=== PATIENT | female | born 1960 | race Caucasian/White ===

== ENCOUNTER 2017-05-21 16:38 | Emergency (ER) | payer BC, OTHER ==
[2017-05-21 16:55] VITALS: TEMP 98.4; BMI 37.3
--- NOTE | 2017-05-21 17:35 | PDOC ---
History of Present Illness - General History Source: Patient, Family (Son and Daughter ) Exam Limitations: No Limitations - History of Present Illness Initial Comments: The patient is a 56 year old female with past medical history of stage 2 Breast Cancer, Lumpectomy, Anxiety, Depression, and Lap Band Procedure (2002) is brought to the ED accompanied by her son and daughter [facility]. The patient reports she was leaning forward on a massage chair while getting a rough but good massage on her posterior neck and head when she felt clammy and asked her masseuse to stop. The patient reports she tried to focus on a red plaque near the floor but was unable to, followed by sweating, and tunnel vision. The patient states she doesn't remember what happened after and a nurse present at the scene reports she lost conscious. The patient reports after she regained conscious somebody gave her a piece of candy then the son drove her to the ED. The patient reports frequent feeling of dizziness (3-4X a week), after a hot shower, not eating or drinking enough, or during stressful situations. The patients daughter reports she faints at least 1X a week. The Nurse (a customer at the [facility]) present at the scene reports she had thready pulse while unconscious. The patient reports feeling nauseous but she reports its due to not eating anything. The patient denies hitting her head when she fainted, chest pain, any sensation of dizziness,or lightheadedness right now. The patient denies any history of smoking, use of alcohol or any recreational drugs. 05/21/17 18:45 <Antonia Liz - Last Filed: 05/21/17 18:52> <Madison Nicolas - Last Filed: 05/21/17 19:12> - General Chief Complaint: Syncope/Near Syncope Stated Complaint: SYNCOPAL EPISODE Time Seen by Provider: 05/21/17 16:43 Past History <Antonia Liz - Last Filed: 05/21/17 18:52> - Past Medical History Anemia: No Asthma: No Cancer: Yes (RIGHT BREAST CA) Cardiac Disorders: No CVA: No COPD: No CHF: No Dementia: No Diabetes: No GI Disorders: No Disorders: No HTN: No Hypercholesterolemia: No Liver Disease: No Psychiatric Problems: (DEPRESSION, ANXIETY) Seizures: No Thyroid Disease: No - Surgical History Abdominal Surgery: Yes (GASTRIC BAND-2002) Appendectomy: No Cardiac Surgery: No Cholecystectomy: No Lung Surgery: No Neurologic Surgery: No Orthopedic Surgery: Yes (LEFT SHOULDER SURGERY) - Immunization History Immunization Up to Date: Yes - Suicide/Smoking/Psychosocial Hx Smoking Status: No Smoking History: Never smoked Have you smoked in the past 12 months: No Number of Cigarettes Smoked Daily: 0 Information on smoking cessation initiated: No Hx Alcohol Use: No Drug/Substance Use Hx: No Substance Use Type: None Hx Substance Use Treatment: No <Madison Nicolas S - Last Filed: 05/21/17 19:12> - Past Medical History Allergies/Adverse Reactions: Allergies Allergy/AdvReac Type Severity Reaction Status Date / Time exemestane AdvReac Intermediate joint Unverified 08/14/16 15:26 swelling Home Medications: Ambulatory Orders Azithromycin [Zithromax 250mg Tablets -] 1 tab PO DAILY 05/21/17 Review of Systems - Review of Systems Able to Perform ROS?: Yes Comments:: CONSTITUTIONAL: (+) Diaphoresis and felt clammy before fainting. Absent: fever, chills, generalized weakness, malaise, loss of appetite HEENT: (+) Tunnel vision before fainting. Absent: rhinorrhea, nasal congestion, throat pain, throat swelling, difficulty swallowing, mouth swelling, ear pain, eye pain, visual Changes CARDIOVASCULAR: (+) Syncope Absent: palpitations, irregular heart rate, lightheadedness, peripheral edema RESPIRATORY: Absent: cough, shortness of breath, dyspnea with exertion, orthopnea, wheezing, stridor, hemoptysis GASTROINTESTINAL: Absent: abdominal pain, abdominal distension, nausea, vomiting, diarrhea, constipation, melena, hematochezia GENITOURINARY: Absent: dysuria, frequency, urgency, hesitancy, hematuria, flank pain, genital pain MUSCULOSKELETAL: Absent: myalgia, arthralgia, joint swelling SKIN: Absent: rash, itching, pallor HEMATOLOGIC/IMMUNOLOGIC: Absent: easy bleeding, easy bruising, lymphadenopathy, frequent infections ENDOCRINE: Absent: unexplained weight gain, unexplained weight loss, heat intolerance, cold intolerance NEUROLOGIC: (+) frequent dizziness and occasional episodes of fainting. Absent: headache, focal weakness or paresthesias, seizure, mental status changes , bladder or bowel incontinence 05/21/17 18:52 <Antonia Liz - Last Filed: 05/21/17 18:52> *Physical Exam - Vital Signs Last Vital Signs Temp Pulse Resp BP Pulse Ox 98.4 F 68 20 119/46 100 05/21/17 16:45 05/21/17 16:45 05/21/17 16:45 05/21/17 16:45 05/21/17 16:45 - Physical Exam Comments: GENERAL: Well developed, well nourished. Awake and alert. No acute distress. HEENT: Normocephalic, atraumatic. PERRLA, EOMI. No conjunctival pallor. Sclera are non- icteric. Moist mucous membranes. Oropharynx is clear. NECK: Supple. Full ROM. No JVD. Carotid pulses 2+ and symmetric, without bruits. No thyromegaly. No lymphadenopathy. CARDIOVASCULAR: Regular rate and rhythm. No murmurs, rubs, or gallops. Distal pulses are 2+ and symmetric. PULMONARY: No evidence of respiratory distress. Lungs clear to auscultation bilaterally. No wheezing, rales or rhonchi. ABDOMINAL: (+) Obese. Soft. Non-tender. Non-distended. No rebound or guarding. No organomegaly. Normoactive bowel sounds. MUSCULOSKELETAL Normal range of motion at all joints. No bony deformities or tenderness. No CVA tenderness. EXTREMITIES: No cyanosis. No clubbing. No edema. No calf tenderness. SKIN: Warm and dry. Normal capillary refill. No rashes. No jaundice. NEUROLOGICAL: (+) Episodes of fainting. Alert, awake, appropriate. Cranial nerves 2-12 intact. No deficits to light touch and temperature in face, upper extremities and lower extremities. No motor deficits in the in face, upper extremities and lower extremities. Normoreflexic in the upper and lower extremities. Normal speech. Toes are down- going bilaterally. PSYCHIATRIC: Cooperative. Good eye contact. Appropriate mood and affect. 05/21/17 18:46 <Antonia Liz - Last Filed: 05/21/17 18:52> - Vital Signs Last Vital Signs Temp Pulse Resp BP Pulse Ox 98.4 F 68 20 119/46 100 05/21/17 16:45 05/21/17 16:45 05/21/17 16:45 05/21/17 16:45 05/21/17 16:45 <Madison Nicolas - Last Filed: 05/21/17 19:12> ED Treatment Course - LABORATORY CBC & Chemistry Diagram: 05/21/17 17:51 05/21/17 17:51 <Antonia Liz - Last Filed: 05/21/17 18:52> - LABORATORY CBC & Chemistry Diagram: 05/21/17 17:51 05/21/17 17:51 <Madison Nicolas - Last Filed: 05/21/17 19:12> *DC/Admit/Observation/Transfer - Attestations Scribe Attestion: 05/21/17 18:52 Documentation prepared by Antonia Liz, acting as medical doctor nuclear medicine for Madison Nicolas MD. <Antonia Liz - Last Filed: 05/21/17 18:52> - Discharge Dispostion Admit: No <Madison Nicolas - Last Filed: 05/21/17 19:12> Diagnosis at time of Disposition: Vaso vagal episode - Discharge Dispostion Disposition: HOME Condition at time of disposition: Stable - Referrals Referrals: Paulie Espitia MD [Staff Physician] - - Patient Instructions Printed Discharge Instructions: DI for Syncope in Adults (Fainting) Additional Instructions: Call Dr Espitia office 9 am to be seen by the doctor tomorrow or Friday. return if any symptoms. Fluids, frequent small feedings
[2017-05-21 18:39] LABS: BASO % 0.3 % (0-2.0); EOS % 2.6 % (0-4.5); HEMATOCRIT 41.4 % (32.4-45.2); HEMOGLOBIN 13.9 GM/dl (10.7-15.3); LYMPH % 22.6 % (8-40); MCH 28.6 pg (25.7-33.7); MCHC 33.6 g/dl (32.0-36.0); MEAN CELL VOLUME 85.2 fl (80-96); MEAN PLT VOLUME 8.2 fl (7.5-11.1); NEUT % 68.5 % (42.8-82.8); PLATELET COUNT 311 K/MM3 (134-434); RBC 4.86 M/mm3 (3.60-5.2); WHITE BLOOD COUNT 8.6 K/mm3 (4.0-10.8)
[2017-05-21 18:53] LABS: ALK PHOS 94 U/L (32-92); ANION GAP 8 (8-16); BILIRUBIN,TOTAL 0.7 mg/dl (0.2-1.0); BLOOD UREA NITROGEN 18 mg/dl (7-18); CALCIUM 9.3 mg/dl (8.4-10.2); CHLORIDE 100 mmol/L (98-107); CO2 25 mmol/L (22-28); GLUCOSE,RANDOM 125 mg/dl (74-106); POTASSIUM 3.7 mmol/L (3.5-5.1); SGOT/AST 18 U/L (10-42); SGPT/ALT 16 U/L (10-40); SODIUM 133 mmol/L (136-145); TOT PROT 6.9 g/dl (6.4-8.3)
[2017-05-21 19:04] LABS: CREATININE < 0.8 mg/dl (0.6-1.3)
[2017-05-21 19:31] VITALS: BP 121/78; PULSE 72
--- NOTE | 2017-05-22 15:57 | EKG ---
Test Reason : Blood Pressure : / mmHG Vent. Rate : 063 BPM Atrial Rate : 063 BPM P-R Int : 150 ms QRS Dur : 088 ms QT Int : 428 ms P-R-T Axes : 003 009 011 degrees QTc Int : 437 ms POOR DATA QUALITY, INTERPRETATION MAY BE ADVERSELY AFFECTED NORMAL SINUS RHYTHM NORMAL ECG NO PREVIOUS ECGS AVAILABLE Confirmed by RUFUS RAGSDALE MD ([id number]) on 05/22/2017 3:56:58 PM Referred By: MD THAYER Confirmed By:RUFUS RAGSDALE MD
== END 2017-05-21 19:42 | disposition home or self-care (01) ==
LOC: FER 16:38
DX: R05 Cough (principal); R55 Syncope and collapse; Z98.84 Bariatric surgery status; F41.8 Other specified anxiety disorders; Z85.3 Personal history of malignant neoplasm of breast
CPT/HCPCS: 36415; 71046-TC-FY; 80053; 84484; 85025; 93005; 99284-25

== ENCOUNTER 2018-04-04 16:22 | Inpatient (IN) | payer OTHER ==
[2018-04-04] MEDS ORDERED: METOCLOPRAMIDE HCL INJECTION 10 MG/2 ML VIAL IVPUSH ONE (16:33)
[2018-04-04] MEDS ORDERED: SODIUM CHLORIDE 1,000 ML IV STA (16:33)
[2018-04-04] MEDS ORDERED: ACETAMINOPHEN 1000 MG/100 ML VIAL (NON FORMULARY) IVPB ONE (16:42)
[2018-04-04] MEDS ORDERED: PANTOPRAZOLE SODIUM 40 MG VIAL IVPUSH ONE (16:58)
[2018-04-04] MEDS ORDERED: OCTREOTIDE ACETATE 50 MCG/1 ML - 1 ML VIAL IVPUSH ONE (17:00)
[2018-04-04] MEDS ORDERED: PANTOPRAZOLE SODIUM 40 MG/100 ML BAG IVPB ONE (17:06)
[2018-04-04] MEDS ORDERED: METOCLOPRAMIDE HCL INJECTION 10 MG/2 ML VIAL ONE (17:06)
[2018-04-04 17:11] LABS: BASO % 0.3 % (0-2.0); EOS % 1.6 % (0-4.5); HEMATOCRIT 43.9 % (32.4-45.2); HEMOGLOBIN 14.9 GM/dL (10.7-15.3); LYMPH % 8.9 % (8-40); MCH 29.5 pg (25.7-33.7); MCHC 33.9 g/dl (32.0-36.0); MEAN CELL VOLUME 87.2 fl (80-96); MEAN PLT VOLUME 8.2 fl (7.5-11.1); MONO % 4.6 % (3.8-10.2); NEUT % 84.6 % (42.8-82.8); PLATELET COUNT 354 K/MM3 (134-434); RBC 5.03 M/mm3 (3.60-5.2); RDW 14.6 % (11.6-15.6); WHITE BLOOD COUNT 17.1 K/mm3 (4.0-10.0)
[2018-04-04] MEDS ORDERED: ACETAMINOPHEN INJECTION 100 ML IVPB ONE (17:26)
--- NOTE | 2018-04-04 17:28 | PDOC ---
Attending Attestation - Resident Resident Name: Jersey León - ED Attending Attestation I have performed the following: I have examined & evaluated the patient, The case was reviewed & discussed with the resident, I agree w/resident's findings & plan, Exceptions are as noted - HPI HPI: 04/04/18 17:25 The patient is a 57 year old female, with a significant past medical history of Stage 2 Breast Cancer (s/p Lumpectomy), Anxiety, Depression, and Lap Band Procedure (2002), who presents to the emergency department with, abdominal pain , nausea, vomiting, and diarrhea. Patient describes her pain as epigastric and RUQ. Prior to her arrival patient experienced 2 episodes of syncope in the context of vomting. As per EMS, patient was given Zofran prior to her arrival. She denies recent fevers, chills, headache or dizziness. She denies recent dysuria, frequency, urgency or hematuria. She denies recent chest pain or shortness of breath. In ED, pt was witnessed to have coffee grounds emesis as well as melenotic stool. Pt denies h/o GI bleed. Denies blood thinners or NSAIDs. Denies any h/o ETOH abuse. Allergies: Exemestane Past surgical history: None reported. Social history: Nonsmoker. Denies EtOH use and recreational drug use. Primary Care Physician: Dr. Espitia - Physicial Exam PE: 04/04/18 17:26 GENERAL: Awake, alert, and fully oriented, in no acute distress. HEAD: No signs of trauma EYES: PERRLA, EOMI, sclera anicteric, conjunctiva clear ENT: Auricles normal inspection, hearing grossly normal, nares patent, oropharynx clear without exudates. Moist mucosa NECK: Nontender, no stepoffs, Normal ROM, supple, no lymphadenopathy, JVD, or masses LUNGS: Breath sounds equal, clear to auscultation bilaterally. No wheezes, and no crackles HEART: Regular rate and rhythm, normal S1 and S2, no murmurs, rubs or gallops ABDOMEN: + epigastric and RUQ tenderness, normoactive bowel sounds. No guarding , no rebound. No masses EXTREMITIES: Normal range of motion, no edema. No clubbing or cyanosis. No cords, erythema, or tenderness NEUROLOGICAL: Cranial nerves II through XII intact. 5/5 strength and sensation in all extremities, Normal speech, normal gait, normal cerebellar function SKIN: Warm, Dry, normal turgor, no rashes or lesions noted. - Medical Decision Making 04/04/18 17:27 57 F with abdominal pain, N+V+D. In ED noted to have coffee grounds emesis and melena. Suspicious for UGIB. Exam also with epigastric and RUQ tenderness. - Labs - RUQ sono - IVF, zofran - Protonix drip - Octreotide - GI consult 04/04/18 17:[address] Greene consulted Will admit to ICU <Navneet Cuellar - Last Filed: 04/04/18 17:42> - Medical Decision Making 04/04/18 17:36 Call placed to [facility], surgery application services manager. Made aware Dr. Augustine is application services manager, EM resident Dr. Trevor León discussed case with patient. 19:[address] Greene's answering service, awaiting call back. <Dhruv Pedroza - Last Filed: 04/04/18 19:06> Attestations - Attestations 04/04/18 17:39 Documentation prepared by Dhruv Pedroza, acting as manager of medical for Navneet Cuellar MD. <Dhruv Pedroza - Last Filed: 04/04/18 19:06>
[2018-04-04] MEDS: PANTOPRAZOLE SODIUM 80 MG in SODIUM CHLORIDE 100 ML IVPB SCH (17:40)
[2018-04-04 17:42] LABS: INR 1.01 (0.83-1.09); PROTHROMBIN TIME (PATIENT) 11.9 SEC (9.7-13.0)
--- NOTE | 2018-04-04 17:42 | PDOC ---
History of Present Illness - General Chief Complaint: Syncope/Near Syncope Stated Complaint: Syncope/Near Syncope Time Seen by Provider: 04/04/18 16:32 History Source: Patient, Family Exam Limitations: No Limitations - History of Present Illness Initial Comments: 04/04/18 17:33 Patient is a 57F with history of HTN and R sided lumpectomy with lymph node dissection on right side here today complaining of vomiting, diarrhea and syncope that onset acutely this afternoon. Patient reports multiple episodes of brown vomit. Patient defecated self. Episode of diarrhea and vomiting seen at bedside: patient has melena and coffee ground emesis. Patient's family reports two episodes of syncope. Patient says she feels cold and diaphoretic. Patient states that she has had intermittent epigastric abdominal pain for the past month. Past History - Past Medical History Allergies/Adverse Reactions: Allergies Allergy/AdvReac Type Severity Reaction Status Date / Time exemestane AdvReac Intermediate joint Unverified 08/14/16 15:26 swelling Home Medications: Ambulatory Orders Azithromycin [Zithromax 250mg Tablets -] 1 tab PO DAILY 05/21/17 Anemia: No Asthma: No Cancer: Yes (RIGHT BREAST CA) Cardiac Disorders: No CVA: No COPD: No CHF: No Dementia: No Diabetes: No GI Disorders: No Disorders: No HTN: No Hypercholesterolemia: No Liver Disease: No Psychiatric Problems: (DEPRESSION, ANXIETY) Seizures: No Thyroid Disease: No - Surgical History Abdominal Surgery: Yes (GASTRIC BAND-2002) Appendectomy: No Cardiac Surgery: No Cholecystectomy: No Lung Surgery: No Neurologic Surgery: No Orthopedic Surgery: Yes (LEFT SHOULDER SURGERY) - Immunization History Immunization Up to Date: Yes - Suicide/Smoking/Psychosocial Hx Smoking Status: No Smoking History: Never smoked Have you smoked in the past 12 months: No Number of Cigarettes Smoked Daily: 0 Information on smoking cessation initiated: No Hx Alcohol Use: No Drug/Substance Use Hx: No Substance Use Type: None Hx Substance Use Treatment: No Review of Systems - Review of Systems Comments:: 04/04/18 17:52 GENERAL/CONSTITUTIONAL: No fever or chills. No weakness. HEAD, EYES, EARS, NOSE AND THROAT: No change in vision. No sore throat. CARDIOVASCULAR: No chest pain or shortness of breath RESPIRATORY: No cough, wheezing, or hemoptysis. GASTROINTESTINAL: +nausea, +vomiting, +diarrhea no constipation. GENITOURINARY: No dysuria, frequency, or change in urination. MUSCULOSKELETAL: No joint or muscle swelling or pain. No neck or back pain. SKIN: No rash NEUROLOGIC: No headache, vertigo, loss of consciousness, or change in strength/ sensation. ENDOCRINE: No increased thirst. No abnormal weight change HEMATOLOGIC/LYMPHATIC: No anemia, easy bleeding, or history of blood clots. ALLERGIC/IMMUNOLOGIC: No hives or skin allergy. *Physical Exam - Vital Signs Last Vital Signs Temp Pulse Resp BP Pulse Ox 97.3 F L 84 18 91/59 L 96 04/04/18 16:41 04/04/18 16:41 04/04/18 16:41 04/04/18 16:41 04/04/18 16:41 - Physical Exam Comments: 04/04/18 17:55 GENERAL: Awake, alert, and fully oriented, pale, diaphoretic HEAD: No signs of trauma, normocephalic, atraumatic EYES: PERRLA, EOMI, sclera anicteric, conjunctiva clear ENT: Auricles normal inspection, hearing grossly normal, nares patent, oropharynx clear without exudates. Moist mucosa NECK: Normal ROM, supple, no lymphadenopathy, JVD, or masses LUNGS: No distress, speaks full sentences, clear to auscultation bilaterally HEART: Regular rate and rhythm, normal S1 and S2, no murmurs, rubs or gallops, peripheral pulses normal and equal bilaterally. ABDOMEN: Soft +epigastric tenderness. No guarding, no rebound. No masses EXTREMITIES: Normal inspection, Normal range of motion, no edema. No clubbing or cyanosis. NEUROLOGICAL: Cranial nerves II through XII grossly intact. Normal speech, no focal sensorimotor deficits SKIN: Warm, Dry, normal turgor, no rashes or lesions noted. Moderate Sedation - Procedure Monitoring Vital Signs: Procedure Monitoring Vital Signs Temperature 97.3 F L 04/04/18 16:41 Pulse Rate 84 04/04/18 16:41 Respiratory Rate 18 04/04/18 16:41 Blood Pressure 91/59 L 04/04/18 16:41 O2 Sat by Pulse Oximetry (%) 96 04/04/18 16:41 ED Treatment Course - LABORATORY CBC & Chemistry Diagram: 04/04/18 18:17 04/04/18 16:55 - ADDITIONAL ORDERS Additional order review: 04/04/18 16:55 RBC 5.03 MCV 87.2 MCHC 33.9 RDW 14.6 MPV 8.2 Neutrophils % 84.6 H D Lymphocytes % 8.9 D Monocytes % 4.6 Eosinophils % 1.6 Basophils % 0.3 - RADIOLOGY Radiology Studies Ordered: Category Date Time Status CXRPORT [CHEST X-RAY PORTABLE*] [RAD] Stat Radiology 04/04/18 17:16 Ordered - Medications Given in the ED: ED Medications Discontinued Medications Generic Name Dose Route Start Last Admin Trade Name Alanis PRN Reason Stop Dose Admin Sodium Chloride 1,000 mls @ 1,000 mls/hr 04/04/18 16:33 04/04/18 17:00 Normal Saline - IV 04/04/18 17:32 1,000 mls/hr ASDIR STA Administration Metoclopramide HCl 10 mg 04/04/18 16:33 04/04/18 17:00 Reglan Injection - IVPUSH 04/04/18 16:34 10 mg ONCE ONE Administration Pantoprazole Sodium 40 mg 04/04/18 16:58 04/04/18 17:00 Protonix Iv IVPUSH 04/04/18 16:59 40 mg ONCE ONE Administration Medical Decision Making - Medical Decision Making 04/04/18 17:55 Patient is 57F here today with GI bleed. Vitals notable for hypotension 90/60, story concerning given two episodes of syncope. Melena/coffee ground emesis witness. Patient given fluids, protonix, octreotide, protonix drip. Dr Greene paged. Initial CBC 14.9. CXR shows no free air under diaphragm. Dr Augustine consulted per Dr Greene. Patient is responsive to fluid, still feels weak. Last BP 120/70. Case discussed with Toan Oconnor, will evaluate for ICU. Dr Greene requesting ICU, second CBC at 18:30 04/04/18 19:08 Second cbc 14.1, case d/w Toan Oconnor, believe patient is stable for floor. Dr Greene aware. Will admit to tele. *DC/Admit/Observation/Transfer Diagnosis at time of Disposition: GI bleed - Discharge Dispostion Condition at time of disposition: Stable Decision to Admit order: Yes - Referrals Referrals: Paulie Espitia MD [Primary Care Provider] - - Patient Instructions - Post Discharge Activity
--- NOTE | 2018-04-04 17:50 | CON.GI ---
Consult Consult Specialty:: Gastroenterology Referred by:: Dr Jersey León Reason for Consultation:: Hematemesis and melena - History of Present Illness Chief Complaint: abdominal pain culminating in coffee grd emesism melena and syncope History of Present Illness: 57F developed coffee ground hematemesis, melena and suffered a syncopal spell on the toilet today. She has had epigastric pain and nausea or the past month for which she was taking Zofran regularly but Zantac prn only. She has chronic acid reflux. She has been using Motrin 800mg for migraine headaches. She had a lap band removed several years ago. She has never had an EGD or a colonoscopy although her brother had colon cancer and she is a breast cancer survivor. 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 Chemorx at [facility]) Psych: Yes: Anxiety, Depression - Past Surgical History Past Surgical History: Yes: Bariatric Surgery, (x 2) Additional Surgical History: Right lumpectomy for breast cancer 2016. Lap band removed 2014 - Alcohol/Substance Use Hx Alcohol Use: No - Smoking History Smoking history: Never smoked Have you smoked in the past 12 months: No Aproximately how many cigarettes per day: 0 - Social History Usual Living Arrangement: With Spouse ADL: Independent Place of : [facility] History of Recent Travel: No Home Medications - Allergies Allergies/Adverse Reactions: Allergies Allergy/AdvReac Type Severity Reaction Status Date / Time exemestane AdvReac Intermediate joint Unverified 08/14/16 15:26 swelling - Home Medications Home Medications: Ambulatory Orders Azithromycin [Zithromax 250mg Tablets -] 1 tab PO DAILY 05/21/17 Family Disease History - Family Disease History Family Disease History: CA: Mother (breast ca 60), Brother (colon cancer in his 60s) Other Family History: Maternal aunt had breast cancer Review of Systems - Review of Systems Constitutional: reports: Chills, Lethargy, Other (Lightheadedness) Eyes: reports: No Symptoms HENT: reports: No Symptoms Neck: reports: No Symptoms Cardiovascular: reports: Palpitations, Shortness of Breath, Other (syncopal spell today) Gastrointestinal: reports: Abdominal Pain, Melena, Nausea, Vomiting, Vomiting Blood Neurological: reports: Headache Endocrine: reports: Increased Thirst Psychiatric: reports: Anxiety Physical Exam-GI Vital Signs: Vital Signs Temperature 97.3 F L 04/04/18 16:41 Pulse Rate 84 04/04/18 16:41 Respiratory Rate 18 04/04/18 16:41 Blood Pressure 91/59 L 04/04/18 16:41 O2 Sat by Pulse Oximetry (%) 96 04/04/18 16:41 CBC,CMP WBC 17.1 K/mm3 (4.0-10.0) H 04/04/18 16:55 RBC 5.03 M/mm3 (3.60-5.2) 04/04/18 16:55 Hgb 14.9 GM/dL (10.7-15.3) 04/04/18 16:55 Hct 43.9 % (32.4-45.2) D 04/04/18 16:55 MCV 87.2 fl (80-96) 04/04/18 16:55 MCH 29.5 pg (25.7-33.7) D 04/04/18 16:55 MCHC 33.9 g/dl (32.0-36.0) 04/04/18 16:55 RDW 14.6 % (11.6-15.6) 04/04/18 16:55 Plt Count 354 K/MM3 (134-434) D 04/04/18 16:55 MPV 8.2 fl (7.5-11.1) 04/04/18 16:55 Absolute Neuts (auto) 14.5 K/mm3 (1.5-8.0) H 04/04/18 16:55 Neutrophils % 84.6 % (42.8-82.8) H D 04/04/18 16:55 Lymphocytes % 8.9 % (8-40) D 04/04/18 16:55 Monocytes % 4.6 % (3.8-10.2) 04/04/18 16:55 Eosinophils % 1.6 % (0-4.5) 04/04/18 16:55 Basophils % 0.3 % (0-2.0) 04/04/18 16:55 Nucleated RBC % 0 % (0-0) 04/04/18 16:55 Creatine Kinase 56 U/L (26-192) 04/04/18 16:55 Troponin I < 0.02 ng/ml (0.00-0.05) 04/04/18 16:55 Current Medications Generic Name Dose Route Start Last Admin Trade Name Alanis PRN Reason Stop Dose Admin Pantoprazole Sodium 80 mg/ 100 mls @ 10 mls/hr 04/04/18 17:00 Sodium Chloride IVPB Q10H CORA 8 MG/HR Constitutional: Yes: Anxious Eyes: Yes: Conjunctiva Clear HENT: Yes: Atraumatic Neck: Yes: Supple Cardiovascular: Yes: Regular Rate and Rhythm, Tachycardia Respiratory: Yes: CTA Bilaterally Gastrointestinal Inspection: Yes: Scars (healed Pfannensteil and laparoscopic incisions) ...Auscultate: Yes: Normoactive Bowel Sounds ...Palpate: Yes: Soft, Tenderness (mild epigastric tenderness) ...Rectal Exam: Yes: Guaiac Positive (black stool is strongly guaiaic positive) Labs: CBC, BMP 04/04/18 16:55 INR, PTT INR 1.01 (0.83-1.09) 04/04/18 16:55 Problem List - Problems (1) Gastrointestinal hemorrhage with melena Assessment/Plan: Suspect bleeding NSAID induced ulcer despite normal Hb which I believe has not yet equilibrated. I have discussed EGD in detail with Lisseth and her and informed then of the potential for such complications as perforation and hemorrhage. She is on a position to give an informed consent and has done so. Agree with repeating Hb soon, IV resuscitation. PPI drip. Will give Reglan as well . Surgical consultation advised. Given the normal Hb woyuld also work up for possible sepsis. Code(s): K92.1 - MELENA (2) Syncope Code(s): R55 - SYNCOPE AND COLLAPSE (3) Hypotension Code(s): I95.9 - HYPOTENSION, UNSPECIFIED (4) Hematemesis with nausea Code(s): K92.0 - HEMATEMESIS (5) History of melena Code(s): Z87.19 - PERSONAL HISTORY OF OTHER DISEASES OF THE DIGESTIVE SYSTEM (6) History of breast cancer Code(s): Z85.3 - PERSONAL HISTORY OF MALIGNANT NEOPLASM OF BREAST (7) Paroxysmal atrial fibrillation Code(s): I48.0 - PAROXYSMAL ATRIAL FIBRILLATION (8) Abdominal pain Code(s): R10.9 - UNSPECIFIED ABDOMINAL PAIN (9) Admission for adjustment of gastric lap band Code(s): Z46.51 - ENCOUNTER FOR FITTING AND ADJUSTMENT OF GASTRIC LAP BAND (10) Family history of colon cancer Assessment/Plan: Will advise colonoscopy when appropriate Code(s): Z80.0 - FAMILY HISTORY OF MALIGNANT NEOPLASM OF DIGESTIVE ORGANS Assessment/Plan Impression Hypotension and syncope due to UGI hemorrhage, most likely an ulcer or severe reflux esophagitis Plan Fluid resuscitation Serial CBCs Protonix drip Reglan Transfuse prn Surgical consultation EGD when stable Case discussed with Dr León
[2018-04-04 18:06] LABS: ALBUMIN 4.1 g/dl (3.4-5.0); ALK PHOS 139 U/L (45-117); ANION GAP 9 MMOL/L (8-16); BLOOD UREA NITROGEN 19 mg/dL (7-18); CALCIUM 9.2 mg/dL (8.5-10.1); CHLORIDE 108 mmol/L (98-107); CO2 24 mmol/L (21-32); CREATININE 0.9 mg/dL (0.55-1.3); GLUCOSE,RANDOM 177 mg/dL (74-106); LIPASE 490 U/L (73-393); POTASSIUM 3.8 mmol/L (3.5-5.1); SGOT/AST 15 U/L (15-37); SGPT/ALT 20 U/L (13-61); SODIUM 141 mmol/L (136-145); TOT PROT 7.5 g/dl (6.4-8.2)
[2018-04-04 18:07] LABS: BILIRUBIN,TOTAL 0.9 mg/dL (0.2-1)
[2018-04-04 18:50] LABS: HEMATOCRIT 41.9 % (32.4-45.2); HEMOGLOBIN 14.1 GM/dL (10.7-15.3); MCH 29.2 pg (25.7-33.7); MCHC 33.7 g/dl (32.0-36.0); MEAN CELL VOLUME 86.6 fl (80-96); MEAN PLT VOLUME 8.1 fl (7.5-11.1); PLATELET COUNT 237 K/MM3 (134-434); RBC 4.84 M/mm3 (3.60-5.2); RDW 14.1 % (11.6-15.6); WHITE BLOOD COUNT 11.9 K/mm3 (4.0-10.0)
--- NOTE | 2018-04-04 20:10 | HP ---
CHIEF COMPLAINT: syncope, nausea, diarrhea PCP: Dr. Espitia HISTORY OF PRESENT ILLNESS: 57 y/o F w/PMH HTN, dCHF (grade 2), breast ca s/p lumpectomy w/lymph node dissection, migraines, panic d/o presents to the ER after multiple episodes of witnessed syncope, vomiting, diarrhea. She has been having 1 month of abdominal pain and was seen by PCP on 03/19/18 and was given zofran at the time and was taking zantac PRN since. She also received motrin 800 mg for migraine HAMMOND on the same visit. She had been taking the motrin once a day until 2 days ago. Zantac was also giving her relief of her abd pain. The abd pain was located directly under the sternum with no radiation and improved immediately after eating but worsened 1-2 hours after eating. Today she felt nauseous and was about to vomit when she syncopized for approx 1 min according to her son. Her son and daughter were with her and were holding on to her and she did not have any head trauma or did not fall. After waking up she threw up bilious vomit and then syncopized for some seconds twice immediately after according to son, again with no head trauma or fall. Since then she has vomited countless times with some blood appearing later and has had 3 episodes of diarrhea. Family denies any bright red blood or dark, tarry stools. They reported her skin looking pale during this time as well. This is the first time she has had these symptoms. She reported feeling cold, light-headed, and diaphoretic during this episode but is much improved now. She also denies CP, SOB, cough, sick contacts, trauma to the abdomen, recent MVA, LE edema, change in urinary habits or blood in urine or dysuria. She has never had an EGD or colonoscopy. Family history is positive for colon ca in brother and breast ca in mother and aunt. ER course was notable for: (1) PPI drip, ofirmev, octreotide, reglan, NS (2) CXR (3) Recent Travel: denies PAST MEDICAL HISTORY: HTN, grade II diastolic CHF, breast ca s/p lumpectomy w/ lymph node dissection, migraines, panic d/o PAST SURGICAL HISTORY: Lapband (1999) - removed 2016, Lumpectomy Social History: Smoking: denies Alcohol: denies Drugs: denies Family History: Mother passed at 74 - COPD, breast ca. Brother - colon ca. Father - Passed at 75 -DM Allergies exemestane Adverse Reaction (Intermediate, Unverified 08/14/16 15:26) joint swelling HOME MEDICATIONS: Home Medications Medication Instructions Recorded Alprazolam 0.5 mg PO TID 04/04/18 Sertraline HCl 50 mg PO DAILY 04/04/18 REVIEW OF SYSTEMS CONSTITUTIONAL: +cold, diaphoresis Absent: fever CARDIOVASCULAR: +syncope, lightheadedness Absent: chest pain, peripheral edema RESPIRATORY: Absent: cough, shortness of breath GASTROINTESTINAL: +abd pain, nausea, vomiting, diarrhea Absent: melena, hematochezia GENITOURINARY: Absent: dysuria, frequency, hematuria NEUROLOGIC: +dizziness, LOC, syncope PSYCHIATRIC: Absent: anxiety PHYSICAL EXAMINATION Vital Signs - 24 hr 04/04/18 04/04/18 16:41 18:05 Temperature 97.3 F L Pulse Rate 84 Pulse Rate [ 86 Apical] Respiratory 18 16 Rate Blood Pressure 91/59 L Blood Pressure 127/73 [Left] O2 Sat by Pulse 96 99 Oximetry (%) GENERAL: Awake, alert, and fully oriented, in no acute distress. HEAD: Normal with no signs of trauma. EYES: extraocular movements intact, sclera anicteric, conjunctiva clear. EARS, NOSE, THROAT: Ears normal, nares patent NECK: Normal range of motion, supple LUNGS: Breath sounds equal, clear to auscultation bilaterally. No wheezes, and no crackles. No accessory muscle use. HEART: Regular rate and rhythm, normal S1 and S2, +murmur best heard in L sternal border. ABDOMEN: +Mild tenderness in LUQ. Soft, not distended, normoactive bowel sounds. LOWER EXTREMITIES: 2+ pulses, warm, well-perfused. No calf tenderness. No peripheral edema. NEUROLOGICAL: Cranial nerves II-XII grossly intact. Normal speech. Gait not observed. PSYCHIATRIC: Cooperative. Good eye contact. Appropriate mood and affect. SKIN: Warm, dry Laboratory Results - last 24 hr 04/04/18 04/04/18 04/04/18 16:55 16:55 16:55 WBC 17.1 H RBC 5.03 Hgb 14.9 Hct 43.9 D MCV 87.2 MCH 29.5 D MCHC 33.9 RDW 14.6 Plt Count 354 D MPV 8.2 Absolute Neuts (auto) 14.5 H Neutrophils % 84.6 H D Lymphocytes % 8.9 D Monocytes % 4.6 Eosinophils % 1.6 Basophils % 0.3 Nucleated RBC % 0 PT with INR INR Sodium 141 Potassium 3.8 Chloride 108 H Carbon Dioxide 24 Anion Gap 9 BUN 19 H Creatinine 0.9 Creat Clearance w eGFR > 60 Random Glucose 177 H Lactic Acid Calcium 9.2 Total Bilirubin 0.9 AST 15 ALT 20 Alkaline Phosphatase 139 H Creatine Kinase 56 Troponin I < 0.02 Total Protein 7.5 Albumin 4.1 Lipase 490 H Anti-A Titer Blood Type Antibody Screen 04/04/18 04/04/18 04/04/18 16:55 16:55 16:58 WBC RBC Hgb Hct MCV MCH MCHC RDW Plt Count MPV Absolute Neuts (auto) Neutrophils % Lymphocytes % Monocytes % Eosinophils % Basophils % Nucleated RBC % PT with INR 11.90 INR 1.01 Sodium Potassium Chloride Carbon Dioxide Anion Gap BUN Creatinine Creat Clearance w eGFR Random Glucose Lactic Acid Calcium Total Bilirubin AST ALT Alkaline Phosphatase Creatine Kinase Troponin I Total Protein Albumin Lipase Anti-A Titer Cancelled Blood Type Cancelled A POSITIVE Antibody Screen Cancelled Negative 04/04/18 04/04/18 17:46 18:17 WBC 11.9 H RBC 4.84 Hgb 14.1 Hct 41.9 MCV 86.6 MCH 29.2 MCHC 33.7 RDW 14.1 Plt Count 237 D MPV 8.1 Absolute Neuts (auto) Neutrophils % Lymphocytes % Monocytes % Eosinophils % Basophils % Nucleated RBC % PT with INR INR Sodium Potassium Chloride Carbon Dioxide Anion Gap BUN Creatinine Creat Clearance w eGFR Random Glucose Lactic Acid 2.7 H* Calcium Total Bilirubin AST ALT Alkaline Phosphatase Creatine Kinase Troponin I Total Protein Albumin Lipase Anti-A Titer Blood Type Antibody Screen Abd CT w/PO contrast: 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 Small hiatal hernia. 2. Otherwise, unremarkable CT of the abdomen and pelvis, given limitations of a nonenhanced CT ASSESSMENT/PLAN: 57 y/o F w/PMH HTN, dCHF (grade 2), breast ca s/p lumpectomy w/lymph node dissection, migraines, panic d/o presents to the ER after multiple episodes of witnessed syncope, vomiting, diarrhea. -UGIB likely secondary to NSAID use -Monitor CBC q8h. CT abd with oral contrast ordered to r/o perforation -Currently hemodynamically stable -No need for transfusion at this time -Protonix drip. Given Reglan in ER -Trend L.[place]. -NS @ 100 ml/hr -Type and screen -NPO -GI on board -Will consult surgery in case of perforation -Discussed case with Dr. Greene as well. Would like to cover her in case of peritonitis and will give her zosyn and flagyl -Will consult ID -Diastolic CHF -not in acute exacerbation -will hold metoprolol and lisinopril -HTN -will hold lisinopril -Anxiety -will hold sertraline -DVT ppx -SCDs -FEN -NS @ 100ml/hr -Monitor electrolytes -NPO -Dispo: Monitor in tele. Low threshold for ICU if pt has signs of worsening UGIB , hemodynamic instability. Visit type - Emergency Visit Emergency Visit: Yes ED Registration Date: 04/04/18 Care time: The patient presented to the Emergency Department on the above date and was hospitalized for further evaluation of their emergent condition. - New Patient This patient is new to me today: Yes Date on this admission: 04/05/18 - Critical Care Critical Care patient: No
[2018-04-04 20:35] LABS: PLATELET ESTIMATE ADEQUATE
--- NOTE | 2018-04-04 20:38 | PN ---
Teaching Attending Note Name of Resident: Sunny Boateng ATTENDING PHYSICIAN STATEMENT I saw and evaluated the patient. I reviewed the resident's note and discussed the case with the resident. I agree with the resident's findings and plan as documented. SUBJECTIVE: Seen and examined; please refer to resident note for further historical information. Briefly, this is a 57 y/o female presenting to the ER with a CC of hemetemesis/CGE/melena. She has accompanying epigastric pain that has been waxing and waning for at least a month; she has been taking zofran and zantac as needed for this issue and taking motrin at least 800mg PO QD. 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 She has had melanotic BM in the ER. She used to have a lap band but it was removed 3 years ago. Initially tachy with slight hypotension but this was responsive to fluids. She gets frequent syncope at home at least monthly but did have more than usual in the past few days. Hb wnl initially with small drop that can be explained with fluids a few hours after. Initially was planned for ICU but is stable at this juncture so was dispo to floor. Seen by GI who felt that this is likely due to ulcer or severe esophageal reflux. Planned for fluid resuscitation, serial CBC, protonix drip and reglan, PRN XF and EGD when stable. He also recommended surgical consultation. 10 sys ROS done and negative aside from HPI PMH (Grade II Diastolic Dysfunction, Panic disorder, Breast Cancer in Remission) , PSH, Family hx, Social hx reviewed Medication list pending reconciliation OBJECTIVE: VS, labs, imaging reviewed NAD, AAO, resting in bed NC AT EOMI PERRLA Upper abdominal pain to deep palpation, ND, +BS RRR s1/2 no mgr Lungs CTAB w/ sym exp CN2-12 wnl, no fnd Normal mood, appropriate affect EKG Reviewed CT Abdomen/Pelvis Pending CXR reviewed ASSESSMENT AND PLAN: Patient presents to the hospital with concern for UGIB; currently hemodynamically stable and afebrile with normal Hb but given symptoms want to ensure no critical findings present. Trending CBC, monitoring orthostatic VS, following up CBC. Case discussed with GI service. 1) UGIB -Admitting to tele; upgrade if any decompensation. Monitor q6h h/h, trend HR. If large bleed, etc. XF prophylactically and if large drop in Hb recall GI and XF. -Has been taking NSAIDs, etc. -Elevated lipase could be from some esophagitis, other inflammation. Check for findings suggestive of lumen thickening, erosions, perf, etc. -No s/s cirrhosis; holding off sandostatin. Gi requested empiric abx; will place orders -Deferring ultimate management to GI service; appreciate expert opinion 2) Syncope -Chronic but has been happening more; check orthostatics and trend, monitor tele , check echo. Her chronic issues are associated with her panic attacks per her. 3) Panic Disorder -Continue home management strategy 4) Grade II Diastolic Dysfunction -Old echo reviewed; followup repeat. Monitor fluid status carefully 5) Hx Breast Cancer -Nonacute; followup with PCP MARIELAA -LR@100 -PRN replete -NPO -As tolerated Full Code
[2018-04-04] MEDS ORDERED: SODIUM CHLORIDE 1,000 ML IV SCH (20:45)
[2018-04-04 22:00] LABS: BASO % 0.4 % (0-2.0); EOS % 0.2 % (0-4.5); HEMATOCRIT 41.2 % (32.4-45.2); HEMOGLOBIN 14.2 GM/dL (10.7-15.3); LYMPH % 3.7 % (8-40); MCH 29.9 pg (25.7-33.7); MCHC 34.5 g/dl (32.0-36.0); MEAN CELL VOLUME 86.6 fl (80-96); MEAN PLT VOLUME 8.2 fl (7.5-11.1); MONO % 3.9 % (3.8-10.2); NEUT % 91.8 % (42.8-82.8); PLATELET COUNT 278 K/MM3 (134-434); RBC 4.76 M/mm3 (3.60-5.2); RDW 14.3 % (11.6-15.6); WHITE BLOOD COUNT 12.2 K/mm3 (4.0-10.0)
[2018-04-04] MEDS ORDERED: PIPERACILLIN/TAZOB 3.375 GM 3.375 GM in DEXTROSE 5%-WATER - 50 ML IVPB ONE (22:03)
[2018-04-04 22:58] LABS: PLATELET ESTIMATE ADEQUATE
[2018-04-04] MEDS ORDERED: PIPERACILLIN/TAZOB 3.375 GM 3.375 GM/50 ML BAG IVPB ONE (23:55)
[2018-04-05] MEDS ORDERED: ACETAMINOPHEN 1000 MG/100 ML VIAL (NON FORMULARY) IVPB ONE ×2 (02:35→11:15)
[2018-04-05 02:57] LABS: URINE APPEARANCE SLCLOUDY; URINE BILIRUBIN NEGATIVE (<2.0 mg/dL); URINE COLOR YELLOW; URINE GLUCOSE (UA) NEGATIVE (NEGATIVE); URINE KETONE NEGATIVE (NEGATIVE); URINE LEUK ESTERASE 1+ (NEGATIVE); URINE NITRITE NEGATIVE (NEGATIVE); URINE PROTEIN NEGATIVE (NEGATIVE); URINE UROBILINOGEN NEGATIVE mg/dL (0.2-1.0)
[2018-04-05 02:59] LABS: EPI CELLS RARE /HPF (FEW); URINE MUCUS RARE
[2018-04-05] MEDS ORDERED: PANTOPRAZOLE SODIUM 40 MG VIAL ONE (03:42)
[2018-04-05] MEDS: PANTOPRAZOLE SODIUM 80 MG in SODIUM CHLORIDE 100 ML IVPB SCH (03:56)
[2018-04-05 06:57] LABS: BASO % 0.3 % (0-2.0); EOS % 0.3 % (0-4.5); HEMATOCRIT 36.2 % (32.4-45.2); HEMOGLOBIN 12.4 GM/dL (10.7-15.3); MCH 29.4 pg (25.7-33.7); MCHC 34.3 g/dl (32.0-36.0); MEAN CELL VOLUME 85.7 fl (80-96); MONO % 7.6 % (3.8-10.2); NEUT % 77.8 % (42.8-82.8); PLATELET COUNT 246 K/MM3 (134-434); RBC 4.22 M/mm3 (3.60-5.2); RDW 14.3 % (11.6-15.6); WHITE BLOOD COUNT 6.6 K/mm3 (4.0-10.0)
[2018-04-05 07:48] LABS: ALBUMIN 3.2 g/dl (3.4-5.0); ALK PHOS 97 U/L (45-117); ANION GAP 6 MMOL/L (8-16); BILIRUBIN,TOTAL 1.6 mg/dL (0.2-1); BLOOD UREA NITROGEN 17 mg/dL (7-18); CALCIUM 8.2 mg/dL (8.5-10.1); CHLORIDE 110 mmol/L (98-107); CO2 24 mmol/L (21-32); CREATININE 0.5 mg/dL (0.55-1.3); GLUCOSE,RANDOM 104 mg/dL (74-106); MAGNESIUM 1.7 mg/dL (1.8-2.4); PHOSPHOROUS 3.4 mg/dL (2.5-4.9); POTASSIUM 3.6 mmol/L (3.5-5.1); SGOT/AST 11 U/L (15-37); SGPT/ALT 15 U/L (13-61); SODIUM 140 mmol/L (136-145); TOT PROT 5.9 g/dl (6.4-8.2)
[2018-04-05] MEDS ORDERED: MAGNESIUM SULF 50% (8.12 MEQ/2 ML-1 GM VIAL) IVPB ONE (09:55)
--- NOTE | 2018-04-05 09:57 | PN ---
Progress Note (short form) - Note Progress Note: Subjective: no abd pain, no N/V, no problems with urine, has not had BM or vomiting over night. no bleeding. admits to using NASAIds daily x 1 week but not past 2 days . denies alcohol . reports GERD adn epigastric discomfort fro a long time ( about a year ) Objective: Vital Signs: Last Vital Signs Temp Pulse Resp BP Pulse Ox 98.6 F 89 15 130/72 97 04/05/18 02:00 04/05/18 08:07 04/05/18 08:07 04/05/18 08:07 04/05/18 08:07 Laboratory Results - last 24 hr 04/04/18 04/04/18 04/04/18 16:55 16:55 16:55 WBC 17.1 H RBC 5.03 Hgb 14.9 Hct 43.9 D MCV 87.2 MCH 29.5 D MCHC 33.9 RDW 14.6 Plt Count 354 D MPV 8.2 Absolute Neuts (auto) 14.5 H Neutrophils % 84.6 H D Neutrophils % (Manual) 68.0 Band Neutrophils % 11.0 Lymphocytes % 8.9 D Lymphocytes % (Manual) 9.0 Monocytes % 4.6 Monocytes % (Manual) 8 Eosinophils % 1.6 Eosinophils % (Manual) 4.0 Basophils % 0.3 Basophils % (Manual) 0.0 Nucleated RBC % 0 Platelet Estimate Adequate PT with INR INR PTT (Actin FS) Sodium 141 Potassium 3.8 Chloride 108 H Carbon Dioxide 24 Anion Gap 9 BUN 19 H Creatinine 0.9 Creat Clearance w eGFR > 60 Random Glucose 177 H Lactic Acid Calcium 9.2 Phosphorus Magnesium Total Bilirubin 0.9 AST 15 ALT 20 Alkaline Phosphatase 139 H Creatine Kinase 56 Troponin I < 0.02 Total Protein 7.5 Albumin 4.1 Lipase 490 H Urine Color Urine Appearance Urine pH Ur Specific [place] Urine Protein Urine Glucose (UA) Urine Ketones Urine Blood Urine Nitrite Urine Bilirubin Urine Urobilinogen Ur Leukocyte Esterase Urine WBC (Auto) Urine RBC (Auto) Ur Epithelial Cells Urine Mucus Anti-A Titer Blood Type Antibody Screen 04/04/18 04/04/18 04/04/18 16:55 16:55 16:58 WBC RBC Hgb Hct MCV MCH MCHC RDW Plt Count MPV Absolute Neuts (auto) Neutrophils % Neutrophils % (Manual) Band Neutrophils % Lymphocytes % Lymphocytes % (Manual) Monocytes % Monocytes % (Manual) Eosinophils % Eosinophils % (Manual) Basophils % Basophils % (Manual) Nucleated RBC % Platelet Estimate PT with INR 11.90 INR 1.01 PTT (Actin FS) Sodium Potassium Chloride Carbon Dioxide Anion Gap BUN Creatinine Creat Clearance w eGFR Random Glucose Lactic Acid Calcium Phosphorus Magnesium Total Bilirubin AST ALT Alkaline Phosphatase Creatine Kinase Troponin I Total Protein Albumin Lipase Urine Color Urine Appearance Urine pH Ur Specific [place] Urine Protein Urine Glucose (UA) Urine Ketones Urine Blood Urine Nitrite Urine Bilirubin Urine Urobilinogen Ur Leukocyte Esterase Urine WBC (Auto) Urine RBC (Auto) Ur Epithelial Cells Urine Mucus Anti-A Titer Cancelled Blood Type Cancelled A POSITIVE Antibody Screen Cancelled Negative 04/04/18 04/04/18 04/04/18 17:46 18:17 21:36 WBC 11.9 H RBC 4.84 Hgb 14.1 Hct 41.9 MCV 86.6 MCH 29.2 MCHC 33.7 RDW 14.1 Plt Count 237 D MPV 8.1 Absolute Neuts (auto) Neutrophils % Neutrophils % (Manual) Band Neutrophils % Lymphocytes % Lymphocytes % (Manual) Monocytes % Monocytes % (Manual) Eosinophils % Eosinophils % (Manual) Basophils % Basophils % (Manual) Nucleated RBC % Platelet Estimate PT with INR INR PTT (Actin FS) 27.4 Sodium Potassium Chloride Carbon Dioxide Anion Gap BUN Creatinine Creat Clearance w eGFR Random Glucose Lactic Acid 2.7 H* Calcium Phosphorus Magnesium Total Bilirubin AST ALT Alkaline Phosphatase Creatine Kinase Troponin I Total Protein Albumin Lipase Urine Color Urine Appearance Urine pH Ur Specific [place] Urine Protein Urine Glucose (UA) Urine Ketones Urine Blood Urine Nitrite Urine Bilirubin Urine Urobilinogen Ur Leukocyte Esterase Urine WBC (Auto) Urine RBC (Auto) Ur Epithelial Cells Urine Mucus Anti-A Titer Blood Type Antibody Screen 04/04/18 04/04/18 04/05/18 21:36 21:36 02:24 WBC 12.2 H RBC 4.76 Hgb 14.2 Hct 41.2 MCV 86.6 MCH 29.9 MCHC 34.5 RDW 14.3 Plt Count 278 MPV 8.2 Absolute Neuts (auto) 11.2 H Neutrophils % 91.8 H Neutrophils % (Manual) 81.0 Band Neutrophils % 12.0 Lymphocytes % 3.7 L D Lymphocytes % (Manual) 4.0 L D Monocytes % 3.9 Monocytes % (Manual) 3 L Eosinophils % 0.2 D Eosinophils % (Manual) 0.0 D Basophils % 0.4 Basophils % (Manual) 0.0 Nucleated RBC % 0 Platelet Estimate Adequate PT with INR INR PTT (Actin FS) Sodium Potassium Chloride Carbon Dioxide Anion Gap BUN Creatinine Creat Clearance w eGFR Random Glucose Lactic Acid 1.6 Calcium Phosphorus Magnesium Total Bilirubin AST ALT Alkaline Phosphatase Creatine Kinase Troponin I Total Protein Albumin Lipase Urine Color Yellow Urine Appearance Slcloudy Urine pH 5.0 Ur Specific [place] 1.025 Urine Protein Negative Urine Glucose (UA) Negative Urine Ketones Negative Urine Blood 2+ H Urine Nitrite Negative Urine Bilirubin Negative Urine Urobilinogen Negative Ur Leukocyte Esterase 1+ H Urine WBC (Auto) 17 Urine RBC (Auto) 19 Ur Epithelial Cells Rare Urine Mucus Rare Anti-A Titer Blood Type Antibody Screen 04/05/18 04/05/18 04/05/18 03:23 06:20 06:20 WBC 6.6 RBC 4.22 Hgb 12.4 Hct 36.2 MCV 85.7 MCH 29.4 MCHC 34.3 RDW 14.3 Plt Count 246 MPV 8.0 Absolute Neuts (auto) 5.1 Neutrophils % 77.8 Neutrophils % (Manual) Band Neutrophils % Lymphocytes % 14.0 D Lymphocytes % (Manual) Monocytes % 7.6 D Monocytes % (Manual) Eosinophils % 0.3 Eosinophils % (Manual) Basophils % 0.3 Basophils % (Manual) Nucleated RBC % 0 Platelet Estimate PT with INR INR PTT (Actin FS) Sodium 140 Potassium 3.6 Chloride 110 H Carbon Dioxide 24 Anion Gap 6 L BUN 17 Creatinine 0.5 L Creat Clearance w eGFR > 60 Random Glucose 104 Lactic Acid Calcium 8.2 L Phosphorus 3.4 Magnesium 1.7 L Total Bilirubin 1.6 H AST 11 L ALT 15 Alkaline Phosphatase 97 Creatine Kinase Troponin I < 0.02 Total Protein 5.9 L Albumin 3.2 L Lipase Urine Color Urine Appearance Urine pH Ur Specific [place] Urine Protein Urine Glucose (UA) Urine Ketones Urine Blood Urine Nitrite Urine Bilirubin Urine Urobilinogen Ur Leukocyte Esterase Urine WBC (Auto) Urine RBC (Auto) Ur Epithelial Cells Urine Mucus Anti-A Titer Blood Type Antibody Screen Physical Exam: NAD, awake, alert , cooperative . HEENT: MMM, no facial droop, CV: RRR, 3/6 SM at LUSB, ( old per patient), Lungs: CTAB Abd: soft, ND, minimal tenderness in epigastric area with no rebound tenderness or guarding . Nl bs Ext : no edema , varicose veins Imaging: CT image and prelim read reviewed: hiatal hernia but no other abnormalities Assessment/Plan: 57 y/o lady with h/o HTN, reflux symptoms, heart murmur , depression/anxiety and migraines who presented with hematemesis and melena . 1- Upper GI bleed : Hb dropped 2 grams, but no more episodes of bleeding.No hypotension or tachycardia. abd exam is significant fro minimal tenderness and no signs of acute abd. prelim CT read with hiatal hernia and no other acute events. Expect gastric or esophageal ulcer/gastritis/esophagitis. - cont PPI gtt - no perforation on CT . leukocytosis might have been reactive. received zosyn and flagyl last night , doubt that Abx are needed .ID to evaluate - D/W dr. Greene, plan for EGD today. - NPO for now - hold HTN meds - follow HB q 8 hr - sx consult placed yesterday due to concern for perforated ulcer 2- Asymptomatic pyuria : hold off abx for now 3- h/o HTN: hold metorpolol and lisinopril 4- h/o depression : resume sertraline to avoid withdrawal CSDs no heparin products for DVT px Visit type - Emergency Visit Emergency Visit: Yes ED Registration Date: 04/04/18 Care time: The patient presented to the Emergency Department on the above date and was hospitalized for further evaluation of their emergent condition. - New Patient This patient is new to me today: No - Critical Care Critical Care patient: No
[2018-04-05] MEDS ORDERED: SERTRALINE HCL 50 MG TABLET (FP) ONE (10:13)
[2018-04-05] MEDS ORDERED: MAGNESIUM 1GM/D5W - 2 GM/200 ML IVPB IVPB ONE (10:14)
[2018-04-05] MEDS: SERTRALINE HCL 50 MG TABLET (FP) PO SCH (10:20)
[2018-04-05] MEDS ORDERED: PROCHLORPERAZINE INJECTION 10 MG/2 ML VIAL IVPB ONE (11:15)
--- NOTE | 2018-04-05 11:33 | PN ---
GI Progress Note Subjective: GI NOte: BP has stabilized, Abdominal pain and vomiting resolved. Hb appears to be leveling off just above her baseline . I again discussed EGD and it's potential for such complications as perforation and hemorrhage. Lisseth has signed an informed consent. - Objective Vital Signs: Vital Signs Temperature 98.6 F 04/05/18 02:00 Pulse Rate 89 04/05/18 08:07 Respiratory Rate 15 04/05/18 08:07 Blood Pressure 130/72 04/05/18 08:07 O2 Sat by Pulse Oximetry (%) 97 04/05/18 08:07 Laboratory Tests 06/30/11 06/03/13 01/26/15 17:00 18:35 13:00 Hgb 11.2 11.2 11.6 01/27/15 07/31/15 05/21/17 19:00 08:40 17:51 Hgb 10.0 L 11.7 13.9 D 04/04/18 04/04/18 04/04/18 16:55 18:17 21:36 Hgb 14.9 14.1 14.2 04/05/18 06:20 Hgb 12.4 Constitutional: Calm Eyes: Yes: Conjunctiva Clear ...Auscultate: Yes: Normoactive Bowel Sounds ...Palpate: Yes: Soft, Other (nontender) ...Percussion: Yes: Tympanitic Labs: CBC, BMP 04/05/18 06:20 04/05/18 06:20 INR, PTT INR 1.01 (0.83-1.09) 04/04/18 16:55 Assessment/Plan Impression Hypotension and syncope due to UGI hemorrhage, most likely an ulcer or severe reflux esophagitis Plan Fluid resuscitation Serial CBCs Protonix drip Transfuse prn Surgical consultation EGD today Case discussed with Dr Cordova Problem List - Problems (1) Gastrointestinal hemorrhage with melena Code(s): K92.1 - MELENA (2) Syncope Code(s): R55 - SYNCOPE AND COLLAPSE (3) Hypotension Code(s): I95.9 - HYPOTENSION, UNSPECIFIED (4) Hematemesis with nausea Code(s): K92.0 - HEMATEMESIS (5) History of melena Code(s): Z87.19 - PERSONAL HISTORY OF OTHER DISEASES OF THE DIGESTIVE SYSTEM (6) History of breast cancer Code(s): Z85.3 - PERSONAL HISTORY OF MALIGNANT NEOPLASM OF BREAST (7) Paroxysmal atrial fibrillation Code(s): I48.0 - PAROXYSMAL ATRIAL FIBRILLATION (8) Abdominal pain Code(s): R10.9 - UNSPECIFIED ABDOMINAL PAIN (9) Admission for adjustment of gastric lap band Code(s): Z46.51 - ENCOUNTER FOR FITTING AND ADJUSTMENT OF GASTRIC LAP BAND (10) Family history of colon cancer Code(s): Z80.0 - FAMILY HISTORY OF MALIGNANT NEOPLASM OF DIGESTIVE ORGANS
[2018-04-05] MEDS ORDERED: ACETAMINOPHEN INJECTION 100 ML IVPB ONE (12:05)
[2018-04-05 14:11] LABS: HEMATOCRIT 36.6 % (32.4-45.2); HEMOGLOBIN 12.4 GM/dL (10.7-15.3); MCH 29.2 pg (25.7-33.7); MEAN CELL VOLUME 85.9 fl (80-96); MEAN PLT VOLUME 7.9 fl (7.5-11.1); PLATELET COUNT 219 K/MM3 (134-434); RBC 4.26 M/mm3 (3.60-5.2); RDW 14.1 % (11.6-15.6); WHITE BLOOD COUNT 5.4 K/mm3 (4.0-10.0)
[2018-04-05] MEDS ORDERED: PANTOPRAZOLE SODIUM 40 MG/100 ML BAG IVPB ONE (14:59)
[2018-04-05] MEDS ORDERED: ONDANSETRON 4 MG/2 ML VIAL IVPUSH PRN (16:54)
[2018-04-05] MEDS ORDERED: LACTATED RINGERS SOLUTION 1,000 ML IV SCH (17:00)
--- NOTE | 2018-04-05 17:11 | CONSULT ---
Consult Consult Specialty:: General Surgery Reason for Consultation:: GIB - History of Present Illness Chief Complaint: GIB History of Present Illness: 57yo female PMH HTN, diastolic CHF (grade 2), breast ca s/p lumpectomy w/lymph node dissection, migraines, panic d/o presents to the ER after multiple episodes of witnessed syncope, vomiting, diarrhea. developed coffee ground hematemesis, melena and suffered a syncopal spell on the toilet today. She has had epigastric pain and nausea or the past month for which she was taking Zofran regularly but Zantac prn only. She has chronic acid reflux. She has been using Motrin 800mg for migraine headaches. She had a lap gastric band removed several years ago by Dr. Eula Heart. She has never had an EGD or a colonoscopy although her brother had colon cancer and she is a breast cancer survivor. Her PMD is Dr Paulie Espitia. we were asked to assess. 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 Lap band removed 2014 - Alcohol/Substance Use Hx Alcohol Use: No - Smoking History Smoking history: Never smoked Have you smoked in the past 12 months: No Aproximately how many cigarettes per day: 0 - Social History Usual Living Arrangement: With Spouse ADL: Independent History of Recent Travel: No Home Medications - Allergies Allergies/Adverse Reactions: Allergies Allergy/AdvReac Type Severity Reaction Status Date / Time exemestane AdvReac Intermediate joint Verified 04/04/18 23:55 swelling - Home Medications Home Medications: Ambulatory Orders Sertraline HCl 50 mg PO DAILY 04/04/18 Ibuprofen 800 mg PO DAILY PRN 04/05/18 Ondansetron HCl [Zofran] 4 mg PO Q8H PRN 04/05/18 Family Disease History - Family Disease History Family Disease History: CA: Mother (breast ca 60), Brother (colon cancer in his 60s) Other Family History: Maternal aunt had breast cancer Review of Systems - Review of Systems Constitutional: denies: Chills, Fever Eyes: denies: Blind Spots, Recent Change in Vision HENT: denies: Difficult Swallowing, Ocular Prosthesis Neck: denies: Pain on Movement, Swollen Glands Cardiovascular: denies: Chest Pain, Palpitations Respiratory: denies: Cough, SOB Gastrointestinal: reports: Abdominal Pain, Nausea, Vomiting. denies: Bloating, Constipation, Diarrhea Genitourinary: denies: Discharge, Dysuria Breasts: reports: No Symptoms Reported. denies: Pain Musculoskeletal: denies: Back Pain, Joint Swelling, Muscle Cramps, Muscle Weakness Integumentary: denies: Change in Color, Lesions Neurological: denies: Seizure, Syncope Endocrine: denies: Unexplained Weight Gain, Unexplained Weight Loss Hematology/Lymphatic: denies: Easily Bruised, Excessive Bleeding Psychiatric: denies: Anxiety, Depression Physical Exam Vital Signs: Vital Signs Temperature 98.6 F 04/05/18 02:00 Pulse Rate 93 H 04/05/18 15:51 Respiratory Rate 14 04/05/18 15:51 Blood Pressure 159/88 04/05/18 15:51 O2 Sat by Pulse Oximetry (%) 99 04/05/18 15:51 Vital Signs Period Temp Pulse Resp BP Sys/Banuelos Pulse Ox Last 24 Hr 98 F-98.6 F 74-96 14-20 123-159/72-102 97-100 Constitutional: Yes: Well Nourished, No Distress, Calm Eyes: Yes: EOM Intact HENT: Yes: Atraumatic, Normocephalic Neck: Yes: Supple, Trachea Midline Cardiovascular: Yes: Regular Rate and Rhythm, S1, S2 Respiratory: Yes: Regular, CTA Bilaterally Gastrointestinal: Yes: Normal Bowel Sounds, Soft, Abdomen, Obese. No: Tenderness, Tenderness, Epigastrium, Tenderness, Rebound ...Rectal Exam: Yes: Deferred Renal/: No: CVA Tenderness - Left, CVA Tenderness - Right Musculoskeletal: No: Muscle Pain, Muscle Weakness Extremities: No: Cool, Cyanosis Edema: No Peripheral Pulses WNL: Yes Integumentary: No: Incision, Jaundice Neurological: Yes: Alert, Oriented Psychiatric: Yes: Alert, Oriented Labs: CBC, BMP 04/05/18 13:53 04/05/18 06:20 Problem List - Problems (1) Nausea and vomiting Assessment/Plan: 57yo female MMP with GIB, No acute surgical intervention from General surgery Monitored setting serial labs transfuse as indicated GI for upper and lower endoscopy to localize bleeding source hold anticoagulation Contact Dr. Erick Heart, Bariatric Surgery for follow up Please recall as needed Thank you for the opportunity to participate in the care of this patient. Code(s): R11.2 - NAUSEA WITH VOMITING, UNSPECIFIED Qualifiers: Vomiting type: hematemesis Qualified Code(s): K92.0 - Hematemesis (2) Obesity Code(s): E66.9 - OBESITY, UNSPECIFIED (3) GI bleed Code(s): K92.2 - GASTROINTESTINAL HEMORRHAGE, UNSPECIFIED (4) Hematemesis with nausea Code(s): K92.0 - HEMATEMESIS (5) History of breast cancer Code(s): Z85.3 - PERSONAL HISTORY OF MALIGNANT NEOPLASM OF BREAST (6) Paroxysmal atrial fibrillation Code(s): I48.0 - PAROXYSMAL ATRIAL FIBRILLATION (7) Syncope Code(s): R55 - SYNCOPE AND COLLAPSE (8) Admission for adjustment of gastric lap band Code(s): Z46.51 - ENCOUNTER FOR FITTING AND ADJUSTMENT OF GASTRIC LAP BAND
--- NOTE | 2018-04-05 17:35 | PN ---
Progress Note (short form) - Note Progress Note: GI Procedure NOte: Please see scanned EGD report. A Panda ulcer was found in a hiatal hernia which is no longer bleeding. Will advance diet. If tolerated can discharge tomorrow in PPI. Problem List - Problems (1) Gastrointestinal hemorrhage with melena Code(s): K92.1 - MELENA (2) Syncope Code(s): R55 - SYNCOPE AND COLLAPSE (3) Hypotension Code(s): I95.9 - HYPOTENSION, UNSPECIFIED (4) Hematemesis with nausea Code(s): K92.0 - HEMATEMESIS (5) History of melena Code(s): Z87.19 - PERSONAL HISTORY OF OTHER DISEASES OF THE DIGESTIVE SYSTEM (6) History of breast cancer Code(s): Z85.3 - PERSONAL HISTORY OF MALIGNANT NEOPLASM OF BREAST (7) Paroxysmal atrial fibrillation Code(s): I48.0 - PAROXYSMAL ATRIAL FIBRILLATION (8) Abdominal pain Code(s): R10.9 - UNSPECIFIED ABDOMINAL PAIN (9) Admission for adjustment of gastric lap band Code(s): Z46.51 - ENCOUNTER FOR FITTING AND ADJUSTMENT OF GASTRIC LAP BAND (10) Family history of colon cancer Code(s): Z80.0 - FAMILY HISTORY OF MALIGNANT NEOPLASM OF DIGESTIVE ORGANS
[2018-04-05 20:20] VITALS: BMI 38.9
--- NOTE | 2018-04-05 22:12 | EKG ---
Test Reason : Blood Pressure : / mmHG Vent. Rate : 083 BPM Atrial Rate : 083 BPM P-R Int : 168 ms QRS Dur : 090 ms QT Int : 394 ms P-R-T Axes : 058 011 020 degrees QTc Int : 462 ms NORMAL SINUS RHYTHM CANNOT RULE OUT ANTERIOR INFARCT , AGE UNDETERMINED ABNORMAL ECG WHEN COMPARED WITH ECG OF 21-MAY-2017 16:46, NO SIGNIFICANT CHANGE WAS FOUND Confirmed by SAYRA RAMSAY, DI ([id number]) on 04/05/2018 10:11:42 PM Referred By: Confirmed By:DI COLBERT MD
[2018-04-05 22:20] LABS: HEMATOCRIT 35.4 % (32.4-45.2); HEMOGLOBIN 12.2 GM/dL (10.7-15.3); MCH 29.7 pg (25.7-33.7); MCHC 34.4 g/dl (32.0-36.0); MEAN CELL VOLUME 86.5 fl (80-96); MEAN PLT VOLUME 8.3 fl (7.5-11.1); PLATELET COUNT 220 K/MM3 (134-434); RBC 4.09 M/mm3 (3.60-5.2); RDW 14.2 % (11.6-15.6); WHITE BLOOD COUNT 5.2 K/mm3 (4.0-10.0)
[2018-04-06 06:05] LABS: BASO % 0.7 % (0-2.0); EOS % 5.4 % (0-4.5); HEMATOCRIT 34.9 % (32.4-45.2); LYMPH % 36.6 % (8-40); MCH 29.4 pg (25.7-33.7); MCHC 34.3 g/dl (32.0-36.0); MEAN CELL VOLUME 85.6 fl (80-96); NEUT % 46.3 % (42.8-82.8); PLATELET COUNT 227 K/MM3 (134-434); RBC 4.08 M/mm3 (3.60-5.2); RDW 13.8 % (11.6-15.6); WHITE BLOOD COUNT 4.7 K/mm3 (4.0-10.0)
[2018-04-06 06:34] LABS: ALK PHOS 89 U/L (45-117); ANION GAP 7 MMOL/L (8-16); BLOOD UREA NITROGEN 10 mg/dL (7-18); CALCIUM 8.3 mg/dL (8.5-10.1); CHLORIDE 110 mmol/L (98-107); CO2 26 mmol/L (21-32); CREATININE 0.4 mg/dL (0.55-1.3); GLUCOSE,RANDOM 88 mg/dL (74-106); MAGNESIUM 1.9 mg/dL (1.8-2.4); PHOSPHOROUS 3.2 mg/dL (2.5-4.9); POTASSIUM 3.3 mmol/L (3.5-5.1); SGOT/AST 18 U/L (15-37); SGPT/ALT 17 U/L (13-61); SODIUM 142 mmol/L (136-145); TOT PROT 5.7 g/dl (6.4-8.2)
[2018-04-06] MEDS ORDERED: POTASSIUM CHLORIDE TABS 20 MEQ TABLET.ER (FP) PO ONE (09:15)
[2018-04-06] MEDS ORDERED: PT OWN MED DRAWER 7, Y5N ONE (09:46)
[2018-04-06] MEDS: SERTRALINE HCL 50 MG TABLET (FP) PO SCH (09:54)
[2018-04-06] MEDS ORDERED: LISINOPRIL 10 MG TABLET (FP) PO SCH (10:15)
[2018-04-06] MEDS ORDERED: SERTRALINE HCL 50 MG TABLET (FP) PO SCH (10:15)
[2018-04-06 15:45] VITALS: BP 160/96; PULSE 98; TEMP 98.2
--- NOTE | 2018-04-06 18:04 | DS ---
Physical Exam: SUBJECTIVE: Patient seen and examined at bedside- no acute events overnight; patient has not had anymore bloody bowel movements nor anymore episdoes of vomiting. she denies any headaches/dizzines/n/v fevers or chills nor palpitations OBJECTIVE: Vital Signs Period Temp Pulse Resp BP Sys/Banuelos Pulse Ox Last 24 Hr 97.9 F-98.2 F 90-98 18-20 144-160/85-96 PHYSICAL EXAM GENERAL: The patient is awake, alert, and fully oriented, in no acute distress. EYES: PEERLA; EOMI; no scleral icterus. NECK: no JVD; no lymphadenopathy LUNGS: CTA B/L; no rales, rhonchi or wheezing. HEART: Regular rate and rhythm, S1, S2 without murmur, rub or gallop. ABDOMEN: Soft, nontender, nondistended, normoactive bowel sounds, no guarding, no rebound, no hepatosplenomegaly, no masses. EXTREMITIES: 2+ pulses, warm, well-perfused, no edema. NEUROLOGICAL: Cranial nerves II through XII grossly intact. Normal speech, gait not observed. PSYCH: Normal mood, normal affect. SKIN: Warm, dry, normal turgor, no rashes or lesions noted. LABS Laboratory Results - last 24 hr 04/05/18 04/06/18 04/06/18 21:35 05:30 05:30 WBC 5.2 4.7 RBC 4.09 4.08 Hgb 12.2 12.0 Hct 35.4 34.9 MCV 86.5 85.6 MCH 29.7 29.4 MCHC 34.4 34.3 RDW 14.2 13.8 Plt Count 220 227 MPV 8.3 8.0 Absolute Neuts (auto) 2.2 Neutrophils % 46.3 D Lymphocytes % 36.6 D Monocytes % 11.0 H Eosinophils % 5.4 H D Basophils % 0.7 Nucleated RBC % 0 Sodium 142 Potassium 3.3 L Chloride 110 H Carbon Dioxide 26 Anion Gap 7 L BUN 10 Creatinine 0.4 L Creat Clearance w eGFR > 60 Random Glucose 88 Calcium 8.3 L Phosphorus 3.2 Magnesium 1.9 Total Bilirubin 1.0 AST 18 ALT 17 Alkaline Phosphatase 89 Total Protein 5.7 L Albumin 3.0 L HOSPITAL COURSE: Date of Admission:04/04/18 57 y/o female with PMH of HTN, heart murmur, reflex, depression/anxiety presented to the ED with hematemeis and melena, after multiple episodes of witnessed syncope, vomiting, diarrhea. she was feeling very faint and diphoretic at home leading up to the synocpe. pateint has a history of really bad migraines and takes ibuprofen very frequently for pain relief. Her inital Hgb was 14 then dropped to 12 and patient was started on a PPI drip. she underwent an EGD which showed a leydi ulcer in addition to a hiatal hernia, however, by the time the EGD was performed the ulcer was no longer bleeding. she was stable for discharge and was sent home with protonix in addition to GI follow up. she was instructed to avoid the use of advil/aspirin/ibuprofen/motrin /celebrex and if she had pain for the headaches she could take tylenol or should ask her PCP about possibly starting fioricet. Date of Discharge: 04/06/18 Minutes to complete discharge: 39 Discharge Summary Reason For Visit: GASTROINTESTINAL HEMORRHAGE WITH MELENA Condition: Improved - Instructions Diet, Activity, Other Instructions: You came to the emergency room with complaints of vomiting blood and diarrhea and your hemoglobin level was found to be low. You had an upper endoscopy performed which showed a hiatal hernia with an ulcer, however, the ulcer was no long bleeding at the time of the scope. Your symptoms resolved and your blood levels remained stable. Please resume all of your home medications in addition: -please take the medication protonix daily -please take Malox as needed please do not take any Motrin, Advil, Aspirin, Celebrex, as these can cause gastrointestinal bleeding Please follow up with Dr. Espitia within one week Please follow up with Dr. Grenee within one week *if you begin to experience chest pains, shortness of breath, have anymore bloody bowel movements or vomiting please return to the emergency room immediately. please do not take zofran any more due to a prolonged segment on your EKG. Referrals: Paulie Espitia MD [Primary Care Provider] - 1 Week Apolinar Greene MD [Staff Physician] - 1 Week Disposition: HOME - Home Medications Comprehensive Discharge Medication List: Ambulatory Orders Sertraline HCl 50 mg PO DAILY 04/04/18 Mag Hydrox/Aluminum Hyd/Simeth [Maalox Advanced Suspension] 148 ml GT PRN #1 oral.susp 04/06/18 Pantoprazole Sodium [Protonix -] 40 mg PO DAILY #30 tablet.ec 04/06/18 Problem List - Problems (1) Nausea and vomiting Code(s): R11.2 - NAUSEA WITH VOMITING, UNSPECIFIED Qualifiers: Vomiting type: hematemesis Qualified Code(s): K92.0 - Hematemesis (2) Vaso vagal episode Code(s): R55 - SYNCOPE AND COLLAPSE (3) GI bleed Code(s): K92.2 - GASTROINTESTINAL HEMORRHAGE, UNSPECIFIED (4) Gastrointestinal hemorrhage with melena Code(s): K92.1 - MELENA This patient is new to me today: Yes Date on this admission: 04/06/18 Emergency Visit: Yes ED Registration Date: 04/04/18 Care time: The patient presented to the Emergency Department on the above date and was hospitalized for further evaluation of their emergent condition. Critical Care patient: No - Discharge Referral Referred to [facility] No
--- NOTE | 2018-04-06 18:37 | PN ---
Teaching Attending Note Name of Resident: Karina Smalls ATTENDING PHYSICIAN STATEMENT I saw and evaluated the patient. I reviewed the resident's note and discussed the case with the resident. I agree with the resident's findings and plan as documented. SUBJECTIVE:seen at 10 am No abd pain, no melena, no N/V, no bleeding episodes. had a watery BM this am . wants to go home OBJECTIVE: NAD HEENT: MMM CV: RRR, 3/6 SM at LUSB Lungs: CTAB Abd: soft, ND, NT, NL BS Ext : no edema , varicose veins Assessment/Plan: 57 y/o lady with h/o HTN, reflux symptoms, heart murmur , depression/anxiety and migraines who presented with hematemesis and melena . 1- Upper GI bleed : resolved. HB stable after the initial drop. EGD noted. - dc home on PPI - avoid NSAIds - f/u with Dr. Greene - need colo as outpt - maalox PRN 2- Asymptomatic pyuria : No Abx 3- h/o HTN: resume her metorpolol and lisinopril 4- h/o depression : cont SSRI dc home . above plan was d/w her in details
== END 2018-04-06 11:15 | disposition home or self-care (01) | DRG 378 ==
LOC: JER 16:22 → JERBED 19:10 → J4W 04-05 17:51
PROVIDERS: ADMIT Internal Medicine; ATTEND Internal Medicine
PROC: 0DJ08ZZ Inspection of Upper Intestinal Tract, Via Natural or Artificial Opening Endoscopic (ICD-10-PCS; principal; 2018-04-05 14:00)
DX: K92.2 Gastrointestinal hemorrhage, unspecified (principal); I50.32 Chronic diastolic (congestive) heart failure; N39.0 Urinary tract infection, site not specified; F32.9 Major depressive disorder, single episode, unspecified; F41.9 Anxiety disorder, unspecified; R55 Syncope and collapse; K21.9 Gastro-esophageal reflux disease without esophagitis; I48.0 Paroxysmal atrial fibrillation; I11.0 Hypertensive heart disease with heart failure; Z85.3 Personal history of malignant neoplasm of breast; G43.909 Migraine, unspecified, not intractable, without status migrainosus; F41.0 Panic disorder [episodic paroxysmal anxiety]; T39.395A Adverse effect of other nonsteroidal anti-inflammatory drugs [NSAID], initial encounter; I95.9 Hypotension, unspecified; E66.9 Obesity, unspecified; K44.9 Diaphragmatic hernia without obstruction or gangrene; Z68.38 Body mass index [BMI] 38.0-38.9, adult
CPT/HCPCS: 36415; 71045-TC-FY; 74176-TC; 80053; 81003; 81015; 82550; 83605; 83690; 83735; 84100; 84484; 85025; 85027; 85610; 85730; 86850; 86900; 86901; 87040; 93005; 93010; 94760; 99284-25; J0131; J7030

== ENCOUNTER 2018-06-12 10:05 | Day surgery (SDC) | payer OTHER ==
[2018-06-12 10:56] VITALS: BMI 38.5
[2018-06-12 12:44] VITALS: TEMP 97.5
[2018-06-12 13:09] VITALS: PULSE 64
[2018-06-12 13:39] VITALS: BP 151/73
--- NOTE | 2018-06-15 14:43 | PATH ---
Surgical Pathology Report Patient Name: MARISELA MOLINA [facility]. Rec. #: [id number] /Age/Gender: 1960 (Age: 57) / F Account: [id number] Location: ASU-ENDOSCOPY Taken: 06/12/2018 Received: 06/12/2018 Reported: 06/15/2018 Physicians: Apolinar Greene M.D. Specimen(s) Received A: TRANSVERSE COLON POLYP B: RIGHT COLON POLYP Clinical History Screening, family history of colon cancer Postoperative diagnosis: Colon polyps Final Diagnosis A. TRANSVERSE COLON, POLYP, BIOPSY: POLYPOID COLONIC MUCOSA WITH PROMINENT LYMPHOID AGGREGATE AND FOCAL SUPERFICIAL HYPERPLASTIC FEATURES. B. COLON, RIGHT, POLYP, BIOPSY: POLYPOID COLONIC MUCOSA WITH PROMINENT LYMPHOID AGGREGATES. Electronically Signed Nini Scott M.D. Gross Description A. Received in formalin, labeled "transverse colon polyp biopsy" are 2 eduardo, irregular portions of soft tissue measuring 0.2 and 0.4 cm. in greatest dimension. The specimens are submitted in toto in one cassette. B. Received in formalin, labeled "right colon polyp biopsy" are 2 eduardo, irregular portions of soft tissue measuring 0.2 and 0.6 cm. in greatest dimension. The specimens are submitted in toto in one cassette. 06/12/2018 [facility]06/12/2018
== END 2018-06-12 13:39 | disposition home or self-care (01) ==
LOC: JASU-ENDO 10:05
PROVIDERS: ATTEND Internal Medicine Gastroenterology
PROC: 0DBL8ZX Excision of Transverse Colon, Via Natural or Artificial Opening Endoscopic, Diagnostic (ICD-10-PCS; 2018-06-12)
PROC: 0DBK8ZX Excision of Ascending Colon, Via Natural or Artificial Opening Endoscopic, Diagnostic (ICD-10-PCS; principal; 2018-06-12 11:00)
DX: Z12.11 Encounter for screening for malignant neoplasm of colon (principal); K63.5 Polyp of colon; D12.2 Benign neoplasm of ascending colon; D12.3 Benign neoplasm of transverse colon; Z80.0 Family history of malignant neoplasm of digestive organs
CPT/HCPCS: 88305-TC

== ENCOUNTER 2018-11-23 20:26 | Emergency (ER) | payer OTHER ==
[2018-11-23 20:48] VITALS: PULSE 59; TEMP 97.8; BMI 38.3
--- NOTE | 2018-11-23 20:59 | PDOC ---
History of Present Illness - General Chief Complaint: Lightheaded Stated Complaint: PASSED OUT - History of Present Illness Initial Comments: 11/23/18 21:06 58 yo F PMH HTN, GERD, breast CA in 2015 s/p lumpectomy and lymph node dissection, anxiety on sertraline, presenting with syncope. Patient states that she was drinking some soup and felt "something twist in my chest", had two episodes of violent emesis, initially nbnb but with streaks of blood in the second, walked to her bed and felt "tunnel vision and my vision going dark", passed out, caught by family, no head trauma. Patient has been feeling unwell for the past three days, with sinus congestion, postnasal drip causing cough, burning throat pain, and fatigue. Per daughter, also had two episodes of emesis yesterday. Specifically denies CP, SOB, HAMMOND, constipation/diarrhea, fevers/chills, urinary symptoms. Endorses continuing mild nausea and epigastric abdominal pain, which she attributes to the force with which she vomited. Past History - Past Medical History Allergies/Adverse Reactions: Allergies Allergy/AdvReac Type Severity Reaction Status Date / Time exemestane AdvReac Intermediate joint Verified 11/23/18 20:49 swelling Home Medications: Ambulatory Orders Sertraline HCl 25 mg PO DAILY 04/04/18 Ranitidine [Zantac -] 150 mg PO BID 06/12/18 Anemia: No Asthma: No Cancer: Yes (RIGHT BREAST CA) Cardiac Disorders: Yes (PAROXYSMAL ATRIAL FIBRILLATION) CVA: No COPD: No CHF: No Dementia: No Diabetes: No GI Disorders: Yes (GERD W HIATAL HERNIA,AARON ULCER BLEED) Disorders: No HTN: No Hypercholesterolemia: No Liver Disease: No Psychiatric Problems: (DEPRESSION, ANXIETY) Seizures: No Thyroid Disease: No - Surgical History Abdominal Surgery: Yes (GASTRIC BAND-2002) Appendectomy: No Cardiac Surgery: No Cholecystectomy: No Lung Surgery: No Neurologic Surgery: No Orthopedic Surgery: Yes (LEFT SHOULDER SURGERY) - Immunization History Immunization Up to Date: Yes - Psycho Social/Smoking Cessation Hx Smoking Status: No Smoking History: Never smoked Have you smoked in the past 12 months: No Number of Cigarettes Smoked Daily: 0 Information on smoking cessation initiated: No Hx Alcohol Use: No Drug/Substance Use Hx: No Substance Use Type: None Hx Substance Use Treatment: No Review of Systems - Review of Systems Able to Perform ROS?: Yes Constitutional: Yes: Malaise. No: Chills, Fever HEENTM: Yes: Throat Pain (burning). No: Recent change in vision Respiratory: Yes: Cough (postnasal drip). No: Shortness of Breath Cardiac (ROS): Yes: Syncope. No: Chest Pain, Edema, Irregular Heart Rate ABD/GI: Yes: Nausea, Vomiting. No: Constipated, Diarrhea : No: Burning, Dysuria, Frequency, Flank Pain Musculoskeletal: No: Back Pain, Muscle Weakness Neurological: No: Headache, Numbness, Tingling, Tremors, Weakness *Physical Exam - Vital Signs Last Vital Signs Temp Pulse Resp BP Pulse Ox 97.8 F 59 L 16 111/66 96 11/23/18 20:43 11/23/18 20:43 11/23/18 20:43 11/23/18 20:43 11/23/18 20:43 - Physical Exam Comments: 11/23/18 21:12 Gen: well-developed, well-nourished, NAD, appears pale Neuro: AAOX4, CN II-XII intact, FTN intact, EOMI, PERRLA HEENT: atraumatic, normocephalic, dry mucous membranes Neck: trachea midline, supple Throat: no apparent edema or erythema in posterior oropharynx CV: regular rate, regular rhythm, no murmurs, rubs, or gallops Pulm: CTA b/l, no wheezing Abd: soft, non-distended, epigastric tenderness MSK: full ROM, intact pulses Extr: no edema, no deformities Skin: warm, dry ED Treatment Course - LABORATORY CBC & Chemistry Diagram: 11/23/18 21:35 11/23/18 21:35 Medical Decision Making - Medical Decision Making 11/23/18 21:11 Differential includes ACS v GERD v gastritis. - CBC, CMP, mag, phos - EKG, trop, CXR port - UA/UC - 1L NS, Pepcid, Maalox - reassess 11/23/18 21:48 Patient reassessed, feeling better after just the Pepcid. Will f/u labs, EKG, UA. 11/23/18 22:39 CBC, lipase, trop unremarkable. Pending CMP, UA. 11/23/18 22:52 CMP and UA unremarkable. 11/23/18 23:52 EKG normal sinus at 66 bpm, no ST segment elevation, no T wave inversions. 11/23/18 23:55 CXR unchanged from prior. Discharge - Discharge Information Problems reviewed: Yes Clinical Impression/Diagnosis: Dizziness, Vaso vagal episode Condition: Stable Disposition: HOME - Follow up/Referral Referrals: Paulie Espitia MD [Primary Care Provider] - - Patient Discharge Instructions Additional Instructions: You were seen with syncope. - Post Discharge Activity
--- NOTE | 2018-11-23 21:03 | PDOC ---
Documentation entered by Antonia Liz SCRIBE, acting as scribe for Radha Putnam MD. Radha Putnam MD: This documentation has been prepared by the oscaribwilla, Antonia Liz SCRIBE, under my direction and personally reviewed by me in its entirety. I confirm that the documentation accurately reflects all work, treatment, procedures, and medical decision making performed by me. Attending Attestation - Resident Resident Name: Kavon Vasquez - ED Attending Attestation I have performed the following: I have examined & evaluated the patient, The case was reviewed & discussed with the resident, I agree w/resident's findings & plan, Exceptions are as noted - HPI HPI: 11/23/18 21:12 The patient is a 58-year-old female with a past medical history of GERD, HTN, and Breast CA s/p lumpectomy who presents to the emergency department s/p a syncopal episode. The patient reports she was eating soup, when she felt a twist in her stomach, followed by x2 episode of vomiting. The patient states she started to have tunnel vision, went over to her bed, had a syncopal episode. Denies head injury. The family reports the patient has 2 episodes of vomiting yesterday also, and hasnt been feeling good last 2 days, associated with sinus congestion, postnasal drip, and a burning sensation to the throat. Denies shortness of breath or chest pain. - Physicial Exam PE: 11/24/18 00:25 58 yo ate quickly tonight and vomited and then 'passes out" -she denies any chest pain or shortness of breath 11/24/18 00:30 wnwd 58 yo female seated on the gurney in no acute distress head ncat neck supple lungs cta b/l cvs [id number] extremities no edema neuro axox3 ,ambulatory,no focal neuro - Medical Decision Making 11/24/18 00:35 ekg @66bpm negative trop labs unremarkable pt has not no symptoms since 8pm/ imp vasovagel episode
[2018-11-23] MEDS ORDERED: FAMOTIDINE 20 MG/50 ML IVPB 20 MG/50 ML MG IVPB ONE ×2 (21:05→21:17)
[2018-11-23] MEDS ORDERED: MAG HYDROX/AL HYDROX/SIMETH 30 ML UNIT-DOSE CUP PO ONE (21:05)
[2018-11-23] MEDS ORDERED: SODIUM CHLORIDE 1,000 ML IV STA (21:06)
[2018-11-23] MEDS ORDERED: MAG HYDROX/AL HYDROX/SIMETH 30 ML UNIT-DOSE CUP ONE (21:17)
[2018-11-23 22:01] LABS: EOS % 2.8 % (0-4.5); HEMATOCRIT 39.8 % (32.4-45.2); HEMOGLOBIN 13.1 GM/dL (10.7-15.3); LYMPH % 23.9 % (8-40); MEAN CELL VOLUME 87.9 fl (80-96); MEAN PLT VOLUME 8.5 fl (7.5-11.1); MONO % 7.2 % (3.8-10.2); NEUT % 65.1 % (42.8-82.8); PLATELET COUNT 300 K/MM3 (134-434); RBC 4.53 M/mm3 (3.60-5.2); WHITE BLOOD COUNT 8.4 K/mm3 (4.0-10.0)
[2018-11-23 22:23] LABS: MAGNESIUM 2.1 mg/dL (1.8-2.4); PHOSPHOROUS 3.2 mg/dL (2.5-4.9)
[2018-11-23 22:43] LABS: EPI CELLS 2.6 /HPF (0-5/HPF); HYALINE CASTS 15 /lpf (0-8); URINE APPEARANCE CLOUDY; URINE BACTERIA 2.7 /hpf (NEGATIVE); URINE BILIRUBIN NEGATIVE (NEGATIVE); URINE COLOR YELLOW; URINE GLUCOSE (UA) NEGATIVE (NEGATIVE); URINE KETONE TRACE (NEGATIVE); URINE LEUK ESTERASE NEGATIVE (NEGATIVE); URINE NITRITE NEGATIVE (NEGATIVE); URINE PROTEIN NEGATIVE (NEGATIVE); URINE RBC 10 /hpf (0-4); URINE WBC 2 /hpf (0-5)
[2018-11-23 22:50] LABS: ALBUMIN 3.7 g/dl (3.4-5.0); BILIRUBIN,TOTAL 0.4 mg/dL (0.2-1); BLOOD UREA NITROGEN 14.9 mg/dL (7-18); CALCIUM 9.1 mg/dL (8.5-10.1); CREATININE 0.7 mg/dL (0.55-1.3); POTASSIUM 4.3 mmol/L (3.5-5.1); TOT PROT 6.8 g/dl (6.4-8.2)
[2018-11-24 00:36] VITALS: BP 118/68
--- NOTE | 2018-11-24 12:51 | EKG ---
Test Reason : Blood Pressure : / mmHG Vent. Rate : 066 BPM Atrial Rate : 066 BPM P-R Int : 134 ms QRS Dur : 076 ms QT Int : 412 ms P-R-T Axes : -12 002 012 degrees QTc Int : 431 ms NORMAL SINUS RHYTHM MINIMAL VOLTAGE CRITERIA FOR LVH, MAY BE NORMAL VARIANT BORDERLINE ECG WHEN COMPARED WITH ECG OF 04-APR-2018 17:04, MINIMAL CRITERIA FOR ANTERIOR INFARCT ARE NO LONGER PRESENT Confirmed by Bud Ambrocio MD ([id number]) on 11/24/2018 12:51:24 PM Referred By: Confirmed By:Bud Ambrocio MD
== END 2018-11-24 00:39 | disposition home or self-care (01) ==
LOC: JER 20:26
PROC: 3E033GC Introduction of Other Therapeutic Substance into Peripheral Vein, Percutaneous Approach (ICD-10-PCS; principal; 2018-11-23)
DX: R55 Syncope and collapse (principal); J34.89 Other specified disorders of nose and nasal sinuses; R07.0 Pain in throat; R05 Cough; I10 Essential (primary) hypertension; K21.9 Gastro-esophageal reflux disease without esophagitis; I48.0 Paroxysmal atrial fibrillation; F41.9 Anxiety disorder, unspecified; F32.9 Major depressive disorder, single episode, unspecified; Z85.3 Personal history of malignant neoplasm of breast; Z98.84 Bariatric surgery status; Z88.8 Allergy status to other drugs, medicaments and biological substances
CPT/HCPCS: 36415; 71046-TC-FY; 80053; 81003; 83690; 83735; 84100; 84484; 85025; 87086; 93005; 93010; 99283-25; J7030

== ENCOUNTER 2018-12-09 21:02 | Emergency (ER) | payer OTHER ==
[2018-12-09 21:09] VITALS: BP 128/84; PULSE 71; TEMP 98.4; BMI 39.0
[2018-12-09] MEDS ORDERED: KETOROLAC TROMETHAMINE 60 MG/2 ML VIAL IM ONE (21:12)
[2018-12-09] MEDS ORDERED: KETOROLAC TROMETHAMINE 60 MG/2 ML VIAL ONE (21:52)
--- NOTE | 2018-12-09 21:55 | PDOC ---
Documentation entered by John Clements SCRIBE, acting as scribe for Virginia Espinosa MD. Virginia Espinosa MD: This documentation has been prepared by the [place] Aiswarya, SCRIBE, under my direction and personally reviewed by me in its entirety. I confirm that the documentation accurately reflects all work, treatment, procedures, and medical decision making performed by me. History of Present Illness - General Chief Complaint: Pain, Acute Stated Complaint: L ARM PAIN Time Seen by Provider: 12/09/18 21:06 History Source: Patient Exam Limitations: No Limitations - History of Present Illness Initial Comments: 12/09/18 21:34 The patient is a 58 year old female, with a significant PMH of paroxysmal atrial fibrillation,GERD with hiatal hernia, and depression, who presents to the emergency department with left shoulder pain that began 2 days ago. The patient states she woke up with pain to the left shoulder and notice pain is exacerbated with movement, no relief with Tylenol. Denies any numbness or tingling. Denies any falls or traumas. Denies chest pain, shortness of breath, headache and dizziness. PAST MEDICAL HISTORY: Paroxysmal atrial fibrillation,GERD with hiatal hernia, and depression PAST SURGICAL HISTORY: gastric band (2002) left shoulder surgery FAMILY HISTORY: no pertinent history SOCIAL HISTORY: Pt lives with family and is employed. MEDICATIONS: reviewed ALLERGIES: As per nursing notes Adult ROS General: No fevers or chills, no weakness, no weight loss HEENT: No change in vision. No sore throat,. No ear pain CardioVascular: No chest pain or shortness of breath Respiratory:No cough, or wheezing. Musculoskeletal: +left shoulder pain Neurologic: No headache, vertigo, dizziness or loss of consciousness Psychiatric: nor depression Skin: No rashes or easy bruising All other systems reviewed and normal Basic PE GENERAL: The patient is awake, alert, and fully oriented, in no acute distress. HEAD: Normal with no signs of trauma. EYES: Pupils equal, round and reactive to light, extraocular movements intact, sclera anicteric, conjunctiva clear. EXTREMITIES: +Tenderness on palpation to the lateral left shoulder. No bony tenderness. Decrease ROM to pain. No swelling on ecchymosis. Neurovascular intact. NEUROLOGICAL: Normal speech, normal gait. PSYCH: Normal mood, normal affect. SKIN: Warm, Dry, normal turgor, no rashes or lesions noted. 12/09/18 21:52 Assessment and plan: This is a 58-year-old female who comes in complaining of pain on her lateral left shoulder. Patient denies any trauma or injury to the area. Patient does have pain on palpation over the subacromial bursa area. X-ray was done that shows no acute pathology Patient given sling and told to follow-up with an orthopedist. Past History - Past Medical History Allergies/Adverse Reactions: Allergies Allergy/AdvReac Type Severity Reaction Status Date / Time exemestane AdvReac Intermediate joint Verified 11/23/18 20:49 swelling Home Medications: Ambulatory Orders Sertraline HCl 25 mg PO DAILY 04/04/18 Ranitidine [Zantac -] 150 mg PO BID 06/12/18 Anemia: No Asthma: No Cancer: Yes (RIGHT BREAST CA) Cardiac Disorders: Yes (PAROXYSMAL ATRIAL FIBRILLATION) CVA: No COPD: No CHF: No Dementia: No Diabetes: No GI Disorders: Yes (GERD W HIATAL HERNIA,AARON ULCER BLEED) Disorders: No HTN: No Hypercholesterolemia: No Liver Disease: No Psychiatric Problems: (DEPRESSION, ANXIETY) Seizures: No Thyroid Disease: No - Surgical History Abdominal Surgery: Yes (GASTRIC BAND-2002) Appendectomy: No Cardiac Surgery: No Cholecystectomy: No Lung Surgery: No Neurologic Surgery: No Orthopedic Surgery: Yes (LEFT SHOULDER SURGERY) - Immunization History Immunization Up to Date: Yes - Psycho Social/Smoking Cessation Hx Smoking Status: No Smoking History: Unknown if ever smoked Have you smoked in the past 12 months: No Number of Cigarettes Smoked Daily: 0 Information on smoking cessation initiated: No Hx Alcohol Use: No Drug/Substance Use Hx: No Substance Use Type: None Hx Substance Use Treatment: No *Physical Exam - Vital Signs Last Vital Signs Temp Pulse Resp BP Pulse Ox 98.4 F 71 14 128/84 98 12/09/18 21:04 12/09/18 21:04 12/09/18 21:04 12/09/18 21:04 12/09/18 21:04 ED Treatment Course - RADIOLOGY Radiology Studies Ordered: Category Date Time Status SHOULDER-LEFT [RAD] Stat Radiology 12/09/18 21:13 Taken - Medications Given in the ED: ED Medications Discontinued Medications Generic Name Dose Route Start Last Admin Trade Name Alanis PRN Reason Stop Dose Admin Ketorolac Tromethamine 60 mg 12/09/18 21:12 12/09/18 21:29 Toradol Injection - IM 12/09/18 21:13 60 mg ONCE ONE Administration Discharge - Discharge Information Problems reviewed: Yes Clinical Impression/Diagnosis: Pain in left shoulder Qualifiers: Chronicity: acute Qualified Code(s): M25.512 - Pain in left shoulder Condition: Good Disposition: HOME - Admission No - Follow up/Referral Referrals: Paulie Espitia MD [Primary Care Provider] - Christian Doran MD [Staff Physician] - - Patient Discharge Instructions Additional Instructions: For the pain take Tylenol 1 extra strength tablet as often as every 4-6 hours as needed. Wear the sling for comfort until you see the orthopedist. Call the orthopedist in the morning and get an appointment. Return to the emergency department immediately with ANY new, persistent or worsening symptoms. Continue any medications as previously prescribed by your physician. You should follow up with your primary doctor as soon as possible regarding today's emergency department visit. . Please make sure your doctor reviews the results of your emergency evaluation. Thank you for coming to the Emergency Department today for your care. It was a pleasure to see you today. Please note that your evaluation is INCOMPLETE until you follow-up with your doctor. - Post Discharge Activity
== END 2018-12-09 22:02 | disposition home or self-care (01) ==
LOC: FER 21:02
PROC: 3E0233Z Introduction of Anti-inflammatory into Muscle, Percutaneous Approach (ICD-10-PCS; principal; 2018-12-09)
DX: M25.512 Pain in left shoulder (principal); F41.8 Other specified anxiety disorders; Z98.84 Bariatric surgery status; K21.9 Gastro-esophageal reflux disease without esophagitis; K46.9 Unspecified abdominal hernia without obstruction or gangrene; Z85.3 Personal history of malignant neoplasm of breast; I48.91 Unspecified atrial fibrillation; Z88.8 Allergy status to other drugs, medicaments and biological substances
CPT/HCPCS: 73030-TC-LT-FY; 99282-25

== ENCOUNTER → 2019-08-06 | Day surgery (SDC) | payer OTHER ==
--- NOTE | 2019-08-07 15:50 | OP ---
DATE OF OPERATION: 08/06/2019 PREOPERATIVE DIAGNOSIS: Right breast mass 1 o'clock, 9 cm from the nipple. POSTOPERATIVE DIAGNOSIS: Right breast mass 1 o'clock, 9 cm from the nipple. PROCEDURE: Right breast ultrasound-guided core biopsy and bowtie clip placement. ANESTHESIA: Local. ATTENDING SURGEON: Ant Landeros MD ESTIMATED BLOOD LOSS: Minimal. COMPLICATIONS: None. DESCRIPTION OF PROCEDURE: Patient was made aware of the risks and benefits of the procedure and consented. She was placed in supine position. Under sterile conditions with 2% lidocaine for local anesthesia, small lorne was made in the skin. Using a 10-gauge suction biopsy device via lateral approach under ultrasound guidance, multiple cores were obtained and submitted to pathology. Likewise under ultrasound guidance, a bowtie clip was placed into the biopsy region. Well tolerated by patient. Steri-Strips and a sterile bandage were applied. We will contact her with results. ANT LANDEROS M.D. [id number]
--- NOTE | 2019-08-09 16:09 | PATH ---
Surgical Pathology Report Patient Name: MARISELA MOLINA [facility]. Rec. #: [id number] /Age/Gender: 1960 (Age: 58) / F Account: [id number] Location: [facility] RADIOLOGY U Taken: 08/06/2019 Received: 08/06/2019 Reported: 08/09/2019 Physicians: Di Martinez M.D. Specimen(s) Received RIGHT BREAST CORE BX 10:00 9 CM FN Clinical History Nonpalpable lesion Ultrasound findings: Highly suspicious/malignant Final Diagnosis Breast, right, 1:00, 9 cm fn, core biopsy: Invasive ductal carcinoma, moderately differentiated, measuring at least 8 mm in greatest dimension. In this material. (See note). Note: The carcinoma is positive for E-Cadherin (performed at [facility]), which supports ductal phenotype. Results of ER and CA studies performed on this specimen at [facility] are as follows: ER (clone [id number] mouse monoclonal antibody by [employer]): _X_ Positive: > 95 % nuclear staining with strong intensity. PgR (clone16 mouse monoclonal antibody by [employer]): _X_ Positive: ~90 % nuclear staining with moderate to strong intensity. Results of Her2 & Ki67 studies will be reported separately in an addendum. Positive and negative controls (internal if applicable) show appropriate results. Formalin fixation and cold ischemic times are within current ASCO/CAP recommendations for ER, CA and Her2 testing. Electronically Signed Meghna Olson M.D. Addendum Reported: 08/11/2019 Addendum Diagnosis Results of Her2 (IHC) & Ki-67 studies performed at [place], [place] ([id number]) are as follows: Her2 IHC (EP3 from [employer], formerly known as [id number], using [employer] Polymer Refine detection kit):0 (negative). Ki-67: ~25% (Intermediate proliferative index). Positive and negative controls (internal if applicable) show appropriate results. Meghna Olson M.D. Gross Description Received in formalin labeled "right breast 1:00, 9 cmfn," is a 2.3 x 1.8 x 0.2 cm aggregate of multiple eduardo-yellow, irregular to cylindrical portions of fibroadipose tissue. The formalin is filtered and the specimen is entirely submitted in one cassette. Time to formalin fixation: < 1 minute Total formalin fixation time: Approximately 6 hours. 08/06/2019 [facility]08/06/2019
== END | disposition home or self-care (01) ==
LOC: FRADUS-SUR 14:57
PROVIDERS: ATTEND Surgery Surgical Oncology
PROC: 0HBT3ZX Excision of Right Breast, Percutaneous Approach, Diagnostic (ICD-10-PCS; principal; 2019-08-06)
DX: C50.211 Malignant neoplasm of upper-inner quadrant of right female breast (principal); Z17.0 Estrogen receptor positive status [ER+]; N63.12 Unspecified lump in the right breast, upper inner quadrant
CPT/HCPCS: 19083; 87899; 88305-TC; 88342-TC; A4648

== ENCOUNTER 2021-07-23 12:25 | Emergency (ER) | payer OTHER ==
[2021-07-23 13:00] VITALS: TEMP 98; BMI 45.6
[2021-07-23 13:54] LABS: HEMATOCRIT 32.8 % (32.4-45.2); MCH 27.2 pg (25.7-33.7); MCHC 33.5 g/dl (32.0-36.0); MEAN CELL VOLUME 81.2 fl (80-96); MEAN PLT VOLUME 7.8 fl (7.5-11.1); PLATELET COUNT 336.9 10^3/uL (134-434); RBC 4.04 10^6/uL (3.60-5.2); RDW 15.9 % (11.6-15.6)
[2021-07-23 13:58] LABS: ALBUMIN 3.9 g/dl (3.4-5.0); BILIRUBIN,TOTAL 0.7 mg/dl (0.2-1); CALCIUM 9.7 mg/dl (8.5-10); CREATININE 0.6 mg/dl (0.55-1.3); TOT PROT 6.8 g/dl (6.4-8.2)
[2021-07-23 15:05] LABS: OPIATES, URI NEGATIVE (NEGATIVE); URINE AMPHETAMINES NEGATIVE (NEGATIVE); URINE BARBITURATES NEGATIVE (NEGATIVE)
[2021-07-23 15:06] LABS: METHADONE, UR NEGATIVE (NEGATIVE); PHENCYCLIDINE,URINE NEGATIVE (NEGATIVE)
[2021-07-23] MEDS ORDERED: IBUPROFEN 600 MG TABLET (FP) PO ONE (15:14)
[2021-07-23 15:22] LABS: COCAINE, UR NEGATIVE (NEGATIVE); URINE BENZODIAZEPINES POSITIVE (NEGATIVE)
[2021-07-23] MEDS ORDERED: ACETAMINOPHEN 325 MG TABLET (FP) ONE (15:40)
[2021-07-23 15:45] LABS: PLATELET ESTIMATE ADEQUATE
[2021-07-23] MEDS ORDERED: ACETAMINOPHEN 325 MG TABLET (FP) PO ONE (15:45)
[2021-07-23 16:01] VITALS: BP 135/88; PULSE 82
== END 2021-07-23 17:41 | disposition home or self-care (01) ==
LOC: FER 12:25
DX: F32.A Depression, unspecified (principal)
CPT/HCPCS: 36415; 80053; 80307; 85027; 99283-25

== ENCOUNTER 2021-10-30 11:28 | Emergency (ER) | payer OTHER ==
[2021-10-30 11:40] VITALS: BP 143/85; PULSE 61; RESP 18; TEMP 98; BMI 43.9
[2021-10-30] MEDS ORDERED: LIDOCAINE 5% TOPICAL PATCH TP ONE (12:42)
[2021-10-30] MEDS ORDERED: ACETAMINOPHEN 500 MG TABLET (FP) PO ONE (12:42)
[2021-10-30] MEDS ORDERED: ACETAMINOPHEN 500 MG TABLET (FP) ONE (12:44)
[2021-10-30] MEDS ORDERED: LIDOCAINE 5% TOPICAL PATCH ONE (12:44)
[2021-10-30] MEDS ORDERED: LIDOCAINE PATCH REMOVAL MC SCH (22:00)
== END 2021-10-30 13:39 | disposition home or self-care (01) ==
LOC: JERFT 11:28
DX: S39.012A Strain of muscle, fascia and tendon of lower back, initial encounter (principal); S16.1XXA Strain of muscle, fascia and tendon at neck level, initial encounter; V49.40XA Driver injured in collision with unspecified motor vehicles in traffic accident, initial encounter
CPT/HCPCS: 72100-TC-FY; 99283-25

== ENCOUNTER 2022-01-11 04:36 | Day surgery (SDC) | payer OTHER ==
[2022-01-09 10:29] VITALS: BMI 43.9
[2022-01-11 10:17] VITALS: TEMP 98.4
[2022-01-11 10:54] VITALS: BP 130/65; PULSE 68; RESP 14
== END 2022-01-11 11:10 | disposition home or self-care (01) ==
LOC: JASU-ENDO 04:36
PROVIDERS: ATTEND Internal Medicine Gastroenterology
PROC: 0DB78ZX Excision of Stomach, Pylorus, Via Natural or Artificial Opening Endoscopic, Diagnostic (ICD-10-PCS; 2022-01-11)
PROC: 0DB48ZX Excision of Esophagogastric Junction, Via Natural or Artificial Opening Endoscopic, Diagnostic (ICD-10-PCS; 2022-01-11)
PROC: 0DB98ZX Excision of Duodenum, Via Natural or Artificial Opening Endoscopic, Diagnostic (ICD-10-PCS; principal; 2022-01-11 10:00)
DX: K29.50 Unspecified chronic gastritis without bleeding (principal); K44.9 Diaphragmatic hernia without obstruction or gangrene; K21.00 Gastro-esophageal reflux disease with esophagitis, without bleeding; Z98.84 Bariatric surgery status
CPT/HCPCS: 88305-TC; 88342-TC